=== PATIENT | male | born 2005 | race Caucasian/White ===

== ENCOUNTER 2023-02-26 15:06 | Outpatient (REF) | payer OTHER, SELFPAY | END 2023-02-26 15:07 | disposition home or self-care (01) | LOC: HO.HMGCLDS 15:06 | PROVIDERS: Visit Provider Physician Assistant | DX: R50.9 Fever, unspecified (principal); Z20.828 Contact with and (suspected) exposure to other viral communicable diseases | CPT/HCPCS: 87811; C9803 ==

== ENCOUNTER 2023-02-26 16:20 | Emergency (ER) | payer OTHER, SELFPAY ==
[2023-02-26 16:36] VITALS: PULSE 139; TEMP 38.4; BMI 34.0
--- NOTE | 2023-02-26 16:36 | ED.GENADULT ---
HPI - General Adult General Chief complaint: General Medical Stated complaint: Sent by Time Seen by Provider: 02/26/23 17:38 Related Data Previous Rx's Medication Instructions Recorded doxycycline hyclate 100 mg tablet 100 mg PO BID #20 tabs 02/26/23 ibuprofen 600 mg tablet 600 mg PO Q6H PRN fever or pain 02/26/23 #20 tabs Allergies Allergy/AdvReac Type Severity Reaction Status Date / Time No Known Allergies Allergy Verified 02/26/23 16:36 [facility] Social History Social History Patient Tobacco Use Status: Never used Tobacco Advance Directives: No Advance Directives Information Provided: No Physical Exam ED Vital Signs: Vital Signs - 24 hr 02/26/23 16:36 02/26/23 17:25 02/26/23 17:42 Temperature 101.1 F H 99.8 F 99.8 F Pulse Rate 139 H Respiratory Rate Blood Pressure Pulse Oximetry Oxygen Delivery Method Room Air 02/26/23 19:24 02/26/23 20:34 Temperature 99.7 F 98.4 F Pulse Rate 108 H 102 H Respiratory Rate 18 16 Blood Pressure 124/71 117/69 Pulse Oximetry 99 97 Oxygen Delivery Method Room Air Room Air BMI result Body Mass Index 34.0 Course Course Course Narrative: This is an RME: Additional HPI, ROS, PE not included below will be deferred to primary provider. This is a [id number] presenting to the emergency department with complaints of headache and neck pain x 1 week. Reports that two weeks ago, he had a mild headache , gradually headache pain getting worse. Took ibuprofen which helped his symptoms. Negative covid, strep test. Left arm with oval shaped rash. Patient reports that 2 months ago he was out in the [facility] for 2 weeks, no known tick bite. No sore throat. Patient is febrile, tachy. Full ROM of neck. Was seen at urgent care and was told to report here for further eval - given ibuprofen while at the urgent care. Charge nurse notified to take patient back bonny Plan: Labs ordered. Tylenol 1g PO ordered. Medications Administered Discontinued Medications Generic Name Dose Route Start Last Admin Trade Name Freq PRN Reason Stop Dose Admin Acetaminophen 975 mg 02/26/23 16:48 02/26/23 16:53 Acetaminophen 325 Mg Tablet PO 02/26/23 16:49 975 mg ONCE ONE Administration Diphenhydramine HCl 25 mg 02/26/23 17:44 02/26/23 18:00 Diphenhydramine Hcl 50 Mg/Ml Vial IVPUSH 02/26/23 17:45 25 mg ONCE ONE Administration Sodium Chloride 2,865 mls @ 2,865 mls/hr 02/26/23 17:23 02/26/23 17:40 Ns 30 ml/kg infuse over 1 hr (2865 ml) 02/26/23 18:22 2,865 mls/hr IV Administration .Q1H STA Ketorolac Tromethamine 30 mg 02/26/23 17:44 02/26/23 18:01 Ketorolac Tromethamine 30 Mg/Ml Vial IVPUSH 02/26/23 17:45 30 mg ONCE ONE Administration Metoclopramide HCl 10 mg 02/26/23 17:44 02/26/23 18:01 Metoclopramide Hcl 10 Mg/2 Ml Vial IVPUSH 02/26/23 17:45 10 mg ONCE ONE Administration Medical Decision Making Medical Decision Making [facility] Narrative: -patient came in febrile, tachycardic, with known exposure to ticks. Admission is comes -patient received IV fluids, ketorolac, patient feeling much better. -patient no longer having a fever, feels good -I discussed the rash on the patient with Dr. Mendoza, we will treat with doxycycline for 10 days 100 mg b.i.d., 1st dose given in the ED Differential Diagnosis Differential Diagnoses: The differential diagnosis associated with the presentation includes (Lyme disease, babesia, ehrichia, viral syndrome, flu, COVID) Admission/Observation Consideration of admission/observation: Escalation of care including admission/observation considered Consult Healthcare Provider Management of the patient was discussed with: Jitterbug Operator (Infectious disease) Lab Data [facility] Lab Attestation statement: I reviewed the patient's lab results. 02/26/23 17:09 02/26/23 17:09 Labs: Lab Results 02/26/23 02/26/23 02/26/23 Range/Units 17:09 17:09 17:09 WBC 8.3 (4.8-10.8) X10*3/uL RBC 5.13 (4.60-5.80) X10*6/uL Hgb 15.4 (14.0-18.0) g/dl Hct 42.9 (42.0-52.0) % MCV 83.6 (80.0-98.0) fL MCH 30.0 (27.0-33.0) pg MCHC 35.9 (31.0-36.0) g/dl RDW 12.1 (11.0-16.0) % Plt Count 191 (160-400) X10*3/uL MPV 9.7 (9.4-12.4) fL Immature Gran % (Auto) 0.2 (0.0-0.4) % Neut % (Auto) 77.6 H (45-73) % Lymph % (Auto) 14.1 L (20-40) % Wirt % (Auto) 7.4 (2-11) % Eos % (Auto) 0.5 (0-4) % Baso % (Auto) 0.2 (0-2) % Lymph # (Auto) 1.2 (1.2-4.9) X10*3/uL Wirt # (Auto) 0.6 (0.1-1.2) X10*3/uL Eos # (Auto) 0.0 (0.0-0.4) X10*3/uL Baso # (Auto) 0.0 (0.0-0.2) X10*3/uL Abs Immat Gran (auto) 0.02 (0.00-0.03) X10*3/uL Absolute Neuts (auto) 6.4 (2.0-8.3) x10*3/uL Absolute Nucleated RBC 0.000 (0.0-0.012) X10*3/uL Nucleated RBC % (auto) 0.0 (0.0-0.2) /100WBC Sodium 138 (135-145) mmol/L Potassium 3.5 (3.3-5.1) mmol/L Chloride 104 (96-108) mmol/L Carbon Dioxide 23 (22-29) mmol/L Anion Gap 15 (12-20) BUN 11 (9-16) mg/dL Creatinine 0.86 (0.5-1.4) mg/dL Estim Creat Clear Calc 149.4 Estimated GFR > 60 Random Glucose 148 H (60-115) mg/dL Lactic Acid (0.5-2.0) mmol/L Calcium 9.6 (8.4-10.2) mg/dL Total Bilirubin 1.7 H (0.0-1.0) mg/dL Direct Bilirubin 0.6 H (0.0-0.5) mg/dL AST 63 H (5-37) U/L ALT 94 H (0-40) U/L Alkaline Phosphatase 97 (39-117) U/L Total Protein 7.6 (6.5-8.0) g/dL Albumin 4.3 (3.5-5.0) g/dL Urine Color Urine Appearance Urine pH (5.0-9.0) Ur Specific [place] (1.005-1.025) Urine Protein (Neg-Trace) mg/dL Urine Glucose (UA) (Negative) mg/dL Urine Ketones (Negative) mg/dL Urine Blood (Negative) Urine Nitrite (Negative) Ur Leukocyte Esterase (Negative) COVID-19 (ABAD) (Negative) COVID-19 Clin Com Monoscreen Negative (Negative) S. pyogenes GrpA FRANKY (Negative) 02/26/23 02/26/23 02/26/23 Range/Units 17:09 17:09 17:09 WBC (4.8-10.8) X10*3/uL RBC (4.60-5.80) X10*6/uL Hgb (14.0-18.0) g/dl Hct (42.0-52.0) % MCV (80.0-98.0) fL MCH (27.0-33.0) pg MCHC (31.0-36.0) g/dl RDW (11.0-16.0) % Plt Count (160-400) X10*3/uL MPV (9.4-12.4) fL Immature Gran % (Auto) (0.0-0.4) % Neut % (Auto) (45-73) % Lymph % (Auto) (20-40) % Wirt % (Auto) (2-11) % Eos % (Auto) (0-4) % Baso % (Auto) (0-2) % Lymph # (Auto) (1.2-4.9) X10*3/uL Wirt # (Auto) (0.1-1.2) X10*3/uL Eos # (Auto) (0.0-0.4) X10*3/uL Baso # (Auto) (0.0-0.2) X10*3/uL Abs Immat Gran (auto) (0.00-0.03) X10*3/uL Absolute Neuts (auto) (2.0-8.3) x10*3/uL Absolute Nucleated RBC (0.0-0.012) X10*3/uL Nucleated RBC % (auto) (0.0-0.2) /100WBC Sodium (135-145) mmol/L Potassium (3.3-5.1) mmol/L Chloride (96-108) mmol/L Carbon Dioxide (22-29) mmol/L Anion Gap (12-20) BUN (9-16) mg/dL Creatinine (0.5-1.4) mg/dL Estim Creat Clear Calc Estimated GFR Random Glucose (60-115) mg/dL Lactic Acid 1.1 (0.5-2.0) mmol/L Calcium (8.4-10.2) mg/dL Total Bilirubin (0.0-1.0) mg/dL Direct Bilirubin (0.0-0.5) mg/dL AST (5-37) U/L ALT (0-40) U/L Alkaline Phosphatase (39-117) U/L Total Protein (6.5-8.0) g/dL Albumin (3.5-5.0) g/dL Urine Color Urine Appearance Urine pH (5.0-9.0) Ur Specific [place] (1.005-1.025) Urine Protein (Neg-Trace) mg/dL Urine Glucose (UA) (Negative) mg/dL Urine Ketones (Negative) mg/dL Urine Blood (Negative) Urine Nitrite (Negative) Ur Leukocyte Esterase (Negative) COVID-19 (ABAD) Negative (Negative) COVID-19 Clin Com See Note Monoscreen (Negative) S. pyogenes GrpA FRANKY Negative (Negative) 02/26/23 Range/Units 18:57 WBC (4.8-10.8) X10*3/uL RBC (4.60-5.80) X10*6/uL Hgb (14.0-18.0) g/dl Hct (42.0-52.0) % MCV (80.0-98.0) fL MCH (27.0-33.0) pg MCHC (31.0-36.0) g/dl RDW (11.0-16.0) % Plt Count (160-400) X10*3/uL MPV (9.4-12.4) fL Immature Gran % (Auto) (0.0-0.4) % Neut % (Auto) (45-73) % Lymph % (Auto) (20-40) % Wirt % (Auto) (2-11) % Eos % (Auto) (0-4) % Baso % (Auto) (0-2) % Lymph # (Auto) (1.2-4.9) X10*3/uL Wirt # (Auto) (0.1-1.2) X10*3/uL Eos # (Auto) (0.0-0.4) X10*3/uL Baso # (Auto) (0.0-0.2) X10*3/uL Abs Immat Gran (auto) (0.00-0.03) X10*3/uL Absolute Neuts (auto) (2.0-8.3) x10*3/uL Absolute Nucleated RBC (0.0-0.012) X10*3/uL Nucleated RBC % (auto) (0.0-0.2) /100WBC Sodium (135-145) mmol/L Potassium (3.3-5.1) mmol/L Chloride (96-108) mmol/L Carbon Dioxide (22-29) mmol/L Anion Gap (12-20) BUN (9-16) mg/dL Creatinine (0.5-1.4) mg/dL Estim Creat Clear Calc Estimated GFR Random Glucose (60-115) mg/dL Lactic Acid (0.5-2.0) mmol/L Calcium (8.4-10.2) mg/dL Total Bilirubin (0.0-1.0) mg/dL Direct Bilirubin (0.0-0.5) mg/dL AST (5-37) U/L ALT (0-40) U/L Alkaline Phosphatase (39-117) U/L Total Protein (6.5-8.0) g/dL Albumin (3.5-5.0) g/dL Urine Color Yellow Urine Appearance Clear Urine pH 6.0 (5.0-9.0) Ur Specific [place] <= 1.005 (1.005-1.025) Urine Protein Negative (Neg-Trace) mg/dL Urine Glucose (UA) Negative (Negative) mg/dL Urine Ketones Negative (Negative) mg/dL Urine Blood Negative (Negative) Urine Nitrite Negative (Negative) Ur Leukocyte Esterase Negative (Negative) COVID-19 (ABAD) (Negative) COVID-19 Clin Com Monoscreen (Negative) S. pyogenes GrpA FRANKY (Negative) Critical Care Time Critical Care Time Critical Care Time: Yes Total Critical Care Time: 30 Attestation: I have personally provided critical care time. Time includes review of lab data, radiology results, discussion with consultants, and monitoring for potential decompensation. Intervention performed as documented. Discharge Plan Discharge Clinical Impression: Tick bite Patient Disposition: Home, Self-Care Instructions: Lyme Disease (ED), Tick Bite (ED) Additional Instructions: Please follow-up with your primary care physician tomorrow. If you have any worsening or new symptoms, please return to the emergency room or call 911 Prescriptions: New doxycycline hyclate 100 mg tablet 100 mg PO BID Qty: 20 0RF ibuprofen 600 mg tablet 600 mg PO Q6H PRN (Reason: fever or pain) Qty: 20 0RF Referrals: Vicky Mendoza MD [Physician] - 03/05/23
--- NOTE | 2023-02-26 16:54 | PC.NURSE ---
pt medicated per OCT for fever.
[2023-02-26 17:25] VITALS: TEMP 37.7
[2023-02-26 17:42] VITALS: TEMP 37.7
[2023-02-26 19:24] VITALS: BP 124/71; PULSE 108; RESP 18; TEMP 37.6; O2SAT 99
[2023-02-26 20:34] VITALS: BP 117/69; PULSE 102; RESP 16; TEMP 36.9; O2SAT 97
[2023-03-02 22:53] LABS: Lyme Abs Screen <0.90 index
[2023-03-06 14:39] LABS: A. Phagocytophilum Ab IgG <1:64 (<1:64); A. Phagocytophilum Ab IgM <1:20 (<1:20); E. Chaffeensis Ab IgG <1:64 (<1:64); E. Chaffeensis Ab IgM <1:20 (<1:20)
[2023-03-07 08:33] LABS: Babesia IgG <1:64 titer (<1:64); Babesia IgM <1:20 titer (<1:20)
== END 2023-02-26 21:11 | disposition home or self-care (01) ==
PROVIDERS: Physician Assistant Medical; Emergency Provider Emergency Medicine
DX: S40.862A Insect bite (nonvenomous) of left upper arm, initial encounter (principal); W57.XXXA Bitten or stung by nonvenomous insect and other nonvenomous arthropods, initial encounter; R00.0 Tachycardia, unspecified; Z20.822 Contact with and (suspected) exposure to COVID-19; Y93.89 Activity, other specified; Y92.828 Other wilderness area as the place of occurrence of the external cause; Y99.9 Unspecified external cause status
CPT/HCPCS: 36415; 80048; 80076; 81003; 83605; 85025; 86308; 86617; 86618; 86666; 86753; 87040; 87635; 87651; 93005; 96361; 96374; 96375; 99284; J1200; J1885; J2765

== ENCOUNTER 2023-02-27 19:43 | Inpatient (IN) | payer OTHER, SELFPAY ==
--- NOTE | 2023-02-27 20:07 | ED.GENADULT ---
HPI - General Adult General Chief complaint: Chest Pain Stated complaint: ?Reaction to antibiotics given 02/26 Time Seen by Provider: 02/27/23 21:00 Source: patient and family Mode of arrival: ambulatory Limitations: no limitations History of Present Illness HPI narrative: patient comes to the emergency room complaining of chest pressure. patient states that this started last night couple of hours after taking the 1st dose of doxycycline. Of note, I saw the patient yesterday, diagnosed with possible Lyme disease. Patient presented with a known history of exposure to ticks approximately 2 months ago, a suspicious rash in the left upper arm, fever, chills. Patient tested negative for COVID, influenza. I discussed the patient with Dr. Mendoza, we both agreed that this could be a more recent exposure to ticks, patient was started on doxycycline and sent home. Today, the patient presented with chest pressure that started since last night. Patient states that he feels better overall, the rash in his arm is getting better, he Has not been spiking fever all day. Patient states that the chest pressure is constant, nonradiating, unrelated to position, no shortness of breath. Related Data Previous Rx's Medication Instructions Recorded doxycycline hyclate 100 mg tablet 100 mg PO BID #20 tabs 02/26/23 ibuprofen 600 mg tablet 600 mg PO Q6H PRN fever or pain 02/26/23 #20 tabs Allergies Allergy/AdvReac Type Severity Reaction Status Date / Time No Known Allergies Allergy Verified 02/26/23 16:36 Review of Systems Review of Systems: Constitutional : No Weight loss, No Fever, No Chills, No Night Sweats, No Fatigue, No Malaise ENT/Mouth : No Hearing loss, No Ear Pain, No Nasal Congestion, No Sinus Pain, No Hoarseness, No sore throat, No Rhinorrhea, No Swallowing Difficulty Eyes: No Eye Pain, No Swelling, No Redness, No Foreign Body, No Discharge, No Vision Changes Cardiovascular : Complaining of bilateral chest discomfort, No SOB, No Dyspnea on Exertion, No Orthopnea, No Edema, No Palpitations Respiratory : No Cough, No Sputum, No Wheezing, No Smoke Exposure, No Dyspnea Gastrointestinal : No Nausea, No Vomiting, No Diarrhea, No Constipation, No abdominal Pain, No Hematochezia, No Melena Genitourinary : no irregular bleeding, No Dysuria, No Urinary Frequency, No Hematuria, No Urinary Incontinence, No Urgency, No Flank Pain, No Urinary Flow Changes, No Hesitancy Musculoskeletal : No joint pain, No Myalgias, No Joint Swelling Skin : No Skin Lesions, No rash Neuro : No Weakness, No Numbness, No Paresthesias, No Loss of Consciousness, No Dizziness, No Headache Psych : No Anxiety/Panic, No Depression, No SI/HI/AH/VH, No Social Issues, Heme/Lymph: No Bruising, No Bleeding,No Lymphadenopathy Endocrine : No Polyuria, No Polydipsia, No Temperature Intolerance [facility] Social History Social History Alcohol intake: never Patient Tobacco Use Status: Never used Tobacco Smoked in Last 30 Days: No Use of substances other than those prescribed or required for medical reasons: No Advance Directives: No Advance Directives Information Provided: No Physical Exam ED Vital Signs: Vital Signs - 24 hr 02/27/23 20:10 Temperature 98 F Pulse Rate 102 H Respiratory Rate 16 Blood Pressure 143/86 H Pulse Oximetry 98 Oxygen Delivery Method Room Air BMI result Body Mass Index 30.7 Const Other: Appearance: Alert. Oriented X3. No acute distress. Eyes: Pupils equal, round and reactive to light. ENT: Pharynx normal. Neck: Normal inspection. Neck supple. No lymph nodes noted. No crepitus CVS: tachycardic between 110-120, regular rhythm. Pulses normal. Normal S1 and S2 Respiratory: No respiratory distress. Breath sounds normal. No Wheezing. No rales Abdomen: Soft and nontender. No rigidity. No distention. Skin: Skin warm and dry. Normal skin color. Normal skin turgor. Extremities: No lower extremity edema. No Lacerations. No Rash Neuro: Oriented X 3. No motor deficit. No sensory deficit. Moving all extremities. No slurred speech. CN 2 through 12 grossly intact Psych: calm, cooperative, anxious, teary Course Course Course Narrative: This is an RME: Additional HPI, ROS, PE not included below will be deferred to primary provider. Patient is a 17 year old male status post initiation of antibiotics last night reporting swelling of the left eye since this morning with sternal burning chest pain and shortness of breath, subjective fevers. Patient denies nausea, vomiting, chills, numbness, tingling, headache, changes in vision. Plan: labs, imaging, benadryl Medications Administered Discontinued Medications Generic Name Dose Route Start Last Admin Trade Name Frederick PRN Reason Stop Dose Admin Diphenhydramine HCl 50 mg 02/27/23 20:07 02/27/23 21:58 Diphenhydramine Hcl 50 Mg/Ml Vial IVPUSH 02/27/23 20:08 50 mg ONCE ONE Administration Medical Decision Making Medical Decision Making [facility] Narrative: - EKG my recommendation: Sinus rhythm, heart rate 103, no ST segment depression or elevation, nonspecific T-wave inversions in lead 3, QTC 434 - my interpretation of chest x-ray: No infiltrates, no fractures or pneumothorax - patient's initial troponin is 2015. no EKG abnormalities other than sinus tachycardia. - I discussed the patient with Dr. Joseph. 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 Recommendations: NSAIDs and admit. - We will continue patient's doxycycline. Patient will likely need an ID consult in the morning. 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 Ford, pt being admitted - patient has been anxious, given p.o. Ativan 1 mg Differential Diagnosis Differential Diagnoses: The differential diagnosis associated with the presentation includes ( Lyme myocarditis, NSTEMI) Admission/Observation Consideration of admission/observation: Escalation of care including admission/observation considered Consult Healthcare Provider Management of the patient was discussed with: Hospitalist and [employer]ave [employer] Operator Lab Data [facility] Lab Attestation statement: I reviewed the patient's lab results. 02/27/23 20:22 02/27/23 20:22 Labs: Lab Results 02/27/23 02/27/23 02/27/23 Range/Units 20:22 20:22 20:22 WBC 8.5 (4.8-10.8) X10*3/uL RBC 4.40 L (4.60-5.80) X10*6/uL Hgb 13.4 L (14.0-18.0) g/dl Hct 37.8 L (42.0-52.0) % MCV 85.9 (80.0-98.0) fL MCH 30.5 (27.0-33.0) pg MCHC 35.4 (31.0-36.0) g/dl RDW 12.5 (11.0-16.0) % Plt Count 196 (160-400) X10*3/uL MPV 9.5 (9.4-12.4) fL Immature Gran % (Auto) 0.4 (0.0-0.4) % Neut % (Auto) 51.9 (45-73) % Lymph % (Auto) 31.3 (20-40) % [place] % (Auto) 14.0 H (2-11) % Eos % (Auto) 2.0 (0-4) % Baso % (Auto) 0.4 (0-2) % Lymph # (Auto) 2.7 (1.2-4.9) X10*3/uL [place] # (Auto) 1.2 (0.1-1.2) X10*3/uL Eos # (Auto) 0.2 (0.0-0.4) X10*3/uL Baso # (Auto) 0.0 (0.0-0.2) X10*3/uL Abs Immat Gran (auto) 0.03 (0.00-0.03) X10*3/uL Absolute Neuts (auto) 4.4 (2.0-8.3) x10*3/uL Absolute Nucleated RBC 0.000 (0.0-0.012) X10*3/uL Nucleated RBC % (auto) 0.0 (0.0-0.2) /100WBC Sodium 144 (135-145) mmol/L Potassium 3.8 (3.3-5.1) mmol/L Chloride 108 (96-108) mmol/L Carbon Dioxide 28 (22-29) mmol/L Anion Gap 12 (12-20) BUN 11 (9-16) mg/dL Creatinine 0.75 (0.5-1.4) mg/dL Estim Creat Clear Calc 163.0 Estimated GFR > 60 Random Glucose 100 (60-115) mg/dL Calcium 9.2 (8.4-10.2) mg/dL Magnesium 1.9 (1.6-2.6) mg/dL Total Bilirubin 1.0 (0.0-1.0) mg/dL AST 105 H (5-37) U/L ALT 153 H (0-40) U/L Alkaline Phosphatase 98 (39-117) U/L Troponin I High Sens 2014.9 H* (<3.5-35.0) ng/L Total Protein 7.0 (6.5-8.0) g/dL Albumin 4.0 (3.5-5.0) g/dL Radiology Impression Discussion of test interpretation with radiology: I have reviewed the radiologist's reading. Radiologist Impression: FINDINGS: No significant abnormality is noted involving the heart, lungs, mediastinum, bony thorax or soft tissues. XR/XR chest 1V IMPRESSION: Unremarkable examination. Independent Historian Clinical information obtained from an independent historian. History obtained from or confirmed by: Parent ( mother and father) Critical Care Time Critical Care Time Critical Care Time: Yes Total Critical Care Time: 75 Attestation: I have personally provided critical care time. Time includes review of lab data, radiology results, discussion with consultants, and monitoring for potential decompensation. Intervention performed as documented. Discharge Plan Discharge Clinical Impression: Myocarditis, Elevated LFTs Patient Disposition: Admitted As Inpatient Prescriptions: No Action doxycycline hyclate 100 mg tablet 100 mg PO BID Qty: 20 0RF ibuprofen 600 mg tablet 600 mg PO Q6H PRN (Reason: fever or pain) Qty: 20 0RF
[2023-02-27 20:10] VITALS: BP 143/86; PULSE 102; RESP 16; TEMP 36.6; O2SAT 98; BMI 30.7
[2023-02-27 22:03] VITALS: BP 151/90; PULSE 118; RESP 16; TEMP 37.3; O2SAT 99
--- NOTE | 2023-02-27 22:16 | PM.IMHP ---
History of Present Illness Date of Service: 02/27/23 Chief Complaint: chest pain This is a 17-year-old male with no pertinent past medical history and not on prescription medications presents to the emergency department for evaluation of chest discomfort. Patient states [place]. He presented to the ER yesterday with left arm rash which he noticed on the day on 02/26/2023. Patient was initiated on doxycycline after consulting with ID and discharged by the ER provider. Patient presents today again with midsternal chest discomfort, nonradiating, constant. He states that it increases with deep inspiration. And no history of similar complaints in the past. No fevers, chills, nausea, vomiting, palpitations, shortness of breath, abdominal pain, changes in urinary or bowel habits. In the emergency department, troponin was found to be elevated. Cardiology was consulted who requested admission Review of Systems Constitutional: Constitutional: Reports no additional constitutional complaints ENT: Reports system reviewed and no additional complaints, except as documented Cardiovascular: Cardiovascular: Reports chest pain Respiratory: Respiratory: Reports no additional respiratory complaints Gastrointestinal: Gastrointestinal: Reports no additional gastrointestinal complaints Musculoskeletal: Musculoskeletal: Reports no additional musculoskeletal complaints PMFSH Pertinent family history: No family history of early CAD Social History Alcohol intake: never Patient Tobacco Use Status: Never used Tobacco Smoked in Last 30 Days: No Use of substances other than those prescribed or required for medical reasons: No Advance Directives: No Advance Directives Information Provided: No Nutrition Risks: No Nutritional Risk Meds Allergies Allergy/AdvReac Type Severity Reaction Status Date / Time No Known Allergies Allergy Verified 02/26/23 16:36 Active Medications: Current Medications Acetaminophen (Acetaminophen 325 Mg Tablet) 650 mg PO Q6H PRN PRN Reason: Pain, Mild (Pain Scale 1-3) Enoxaparin Sodium (Enoxaparin Sodium 40 Mg/0.4 Ml Syringe) 40 mg SUBCUT Q24H TISH Doxycycline Hyclate 100 mg/ (Sodium Chloride) 250 mls @ 166.67 mls/hr IV ONCE ONE Stop: 02/27/23 23:31 Ibuprofen (Ibuprofen 600 Mg Tablet) 600 mg PO Q6H TISH Melatonin (Melatonin 3 Mg Tablet) 6 mg PO BEDTIME PRN PRN Reason: Insomnia Ondansetron HCl (Ondansetron Hcl 4 Mg/2 Ml Vial) 4 mg IVPUSH Q8H PRN PRN Reason: Nausea and Vomiting Pharmacy Consult (Consult Rx Perform Med Rec) 1 each MISCELLANE ONCE PRN PRN Reason: Consult order Sodium Chloride (0.9 % Sodium Chloride Flush 3 Ml Syringe) 3 ml IVFLUSH QSHIFT TISH Physical Exam Vital Signs and Narrative: Vital Signs: Last Vital Signs Temp 99.2 F 02/27/23 22:03 Pulse 118 H 02/27/23 22:03 Resp 16 02/27/23 22:03 BP 151/90 H 02/27/23 22:03 Pulse Ox 99 02/27/23 22:03 O2 Del Method Room Air 02/27/23 22:03 BMI result Body Mass Index 30.7 Young male lying in bed in no distress Neck supple, no JVD Tachycardic with regular rhythm, S1-S2 heard Regular breath sounds bilaterally, no wheezing or crackles appreciated Abdomen soft nontender, no guarding, no rigidity Patient is awake, alert and oriented to self, place, time and person ; no focal motor deficit Musculoskeletal: Left arm rash seen Psych: Normal mood No pedal edema Results Labs 02/27/23 20:22 02/27/23 20:22 Labs: Laboratory Results - last 24 hr 02/27/23 02/27/23 02/27/23 20:22 20:22 20:22 MCV 85.9 MCH 30.5 MCHC 35.4 RDW 12.5 Plt Count 196 MPV 9.5 Immature Gran % (Auto) 0.4 Neut % (Auto) 51.9 Lymph % (Auto) 31.3 [place] % (Auto) 14.0 H Eos % (Auto) 2.0 Baso % (Auto) 0.4 Lymph # (Auto) 2.7 [place] # (Auto) 1.2 Eos # (Auto) 0.2 Baso # (Auto) 0.0 Abs Immat Gran (auto) 0.03 Absolute Neuts (auto) 4.4 Absolute Nucleated RBC 0.000 Nucleated RBC % (auto) 0.0 Anion Gap 12 Estim Creat Clear Calc 163.0 Estimated GFR > 60 Random Glucose 100 Calcium 9.2 Magnesium 1.9 Total Bilirubin 1.0 AST 105 H ALT 153 H Alkaline Phosphatase 98 Troponin I High Sens 2014.9 H* Total Protein 7.0 Albumin 4.0 Imaging Radiologist's Impressions: Impressions Chest X-Ray 02/27/23 20:34 IMPRESSION: Unremarkable examination. Assessment and Plan (1) Chest pain: Status: Acute Plan This is a 17-year-old male with no pertinent past medical history and not on prescription medications presents to the emergency department for evaluation of chest discomfort. #. Elevated troponin, concerning for pericarditis. Will admit patient with clinical dietician. Initiating NSAIDs. Cardiology was consulted from the ER, appreciate assistance. Obtaining echo. Trend troponin #. Rash likely due to tick bite. Continue doxycycline. Lyme titers pending DVT prophylaxis: Lovenox Full code Time Spent With Patient Time: Total time managing care of this patient today ____ minutes. Quality Stroke Does the patient have a stroke diagnosis?: No VTE Prior VTE?: No VTE Risk Level:: Medical - moderate - high VTE Device Contraindication: Treatment Not Indicated VTE Drug Contraindication: N/A - Med Ordered
--- NOTE | 2023-02-27 22:17 | PHA.MEDREC ---
Pharmacy Consult ? Medication Reconciliation Pharmacy has completed the medication reconciliation. Pt discharged 02/26
--- NOTE | 2023-02-27 23:17 | PC.NURSE ---
Addendum entered by Calista Arambula 02/27/23 23:23: Report given to Mariely, Pt will be transported to room 478, Pt and parents aware of plan. Original Note: Pt A&Ox4, reports intermittent burning pain to middle of chest, non-radiating, states it worsens with deep breathing and exertion, rates pain 2/10. Pt denies N/V/D, denies ABD pain. Pt placed on bedside monitor, IV line established, meds given as documented. Pt ambulated to BR independently with steady gait, parents at bedside.
[2023-02-27 23:56] VITALS: BMI 35.4
[2023-02-28] VITALS (7 sets, daily range): BP systolic 132–166; BP diastolic 63–76; PULSE 85–106; RESP 18–20; TEMP 36.1–36.7; O2SAT 98–99
--- NOTE | 2023-02-28 10:03 | HO.PM.IMPN ---
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 Rash on L arm and R chest Review of Systems Review of Systems: Yes all other systems are reviewed and are negative Physical Exam Vital Signs: Vital Signs: Last Vital Signs Temp 97.1 F 02/28/23 07:41 Pulse 85 02/28/23 07:41 Resp 19 02/28/23 07:41 BP 132/70 02/28/23 07:41 Pulse Ox 99 02/28/23 07:41 O2 Del Method Room Air 02/28/23 07:41 BMI result Body Mass Index 35.4 Gen: in no acute distress HEENT: sclera anicteric, moist mucus membranes, full ROM, no nuchal rigidity Neck: supple Lungs: clear to auscultation bilaterally Heart: regular rate and rhythm, no murmurs Abd: soft, non-tender, non-distended Ext: no edema Skin: warm/well-perfused, 2 areas of erythema on R upper arm and L chest Neuro: alert and oriented x3, no focal findings Psych: appropriate affect Objective Data Active Medications Acetaminophen (Acetaminophen 325 Mg Tablet) 650 mg PO Q6H PRN PRN Reason: Pain, Mild (Pain Scale 1-3) Last Admin: 02/28/23 00:21 Dose: 650 mg Documented By: CD Enoxaparin Sodium (Enoxaparin Sodium 40 Mg/0.4 Ml Syringe) 40 mg SUBCUT Q24H [facility] Last Admin: 02/27/23 22:30 Dose: 40 mg Documented By: ALEXX Ceftriaxone Sodium 2 gm/ (Sodium Chloride) 50 mls @ 100 mls/hr IV Q24H [facility] Last Admin: 02/28/23 09:43 Dose: 100 mls/hr Documented By: MATT Ibuprofen (Ibuprofen 600 Mg Tablet) 600 mg PO Q6H [facility] Last Admin: 02/28/23 09:42 Dose: 600 mg Documented By: MATT Melatonin (Melatonin 3 Mg Tablet) 6 mg PO BEDTIME PRN PRN Reason: Insomnia Last Admin: 02/28/23 00:21 Dose: 6 mg Documented By: DC Ondansetron HCl (Ondansetron Hcl 4 Mg/2 Ml Vial) 4 mg IVPUSH Q8H PRN PRN Reason: Nausea and Vomiting Pharmacy Consult (Consult Rx Perform Med Rec) 1 each MISCELLANE ONCE PRN PRN Reason: Consult order Sodium Chloride (0.9 % Sodium Chloride Flush 3 Ml Syringe) [address] [facility] Last Admin: 02/28/23 09:44 Dose: 3 ml Documented By: MATT Labs 02/28/23 06:14 02/28/23 06:14 Labs: Laboratory Results - last 24 hr 02/27/23 02/27/23 02/27/23 20:22 20:22 20:22 MCV 85.9 MCH 30.5 MCHC 35.4 RDW 12.5 Plt Count 196 MPV 9.5 Immature Gran % (Auto) 0.4 Neut % (Auto) 51.9 Lymph % (Auto) 31.3 [place] % (Auto) 14.0 H Eos % (Auto) 2.0 Baso % (Auto) 0.4 Lymph # (Auto) 2.7 [place] # (Auto) 1.2 Eos # (Auto) 0.2 Baso # (Auto) 0.0 Abs Immat Gran (auto) 0.03 Absolute Neuts (auto) 4.4 Absolute Nucleated RBC 0.000 Nucleated RBC % (auto) 0.0 Anion Gap 12 Estim Creat Clear Calc 163.0 Estimated GFR > 60 Random Glucose 100 Calcium 9.2 Magnesium 1.9 Total Bilirubin 1.0 AST 105 H ALT 153 H Alkaline Phosphatase 98 Troponin I High Sens 2014.9 H* Total Protein 7.0 Albumin 4.0 02/27/23 02/28/23 02/28/23 23:07 06:14 06:14 MCV 86.4 MCH 29.8 MCHC 34.5 RDW 12.6 Plt Count 183 MPV 9.7 Immature Gran % (Auto) 0.4 Neut % (Auto) 39.6 L Lymph % (Auto) 44.4 H [place] % (Auto) 12.6 H Eos % (Auto) 2.7 Baso % (Auto) 0.3 Lymph # (Auto) 3.3 [place] # (Auto) 0.9 Eos # (Auto) 0.2 Baso # (Auto) 0.0 Abs Immat Gran (auto) 0.03 Absolute Neuts (auto) 3.0 Absolute Nucleated RBC 0.000 Nucleated RBC % (auto) 0.0 Anion Gap 13 Estim Creat Clear Calc 172.5 Estimated GFR > 60 Random Glucose 91 Calcium 9.3 Magnesium Total Bilirubin AST ALT Alkaline Phosphatase Troponin I High Sens 2217.2 H* Total Protein Albumin 02/28/23 06:14 MCV MCH MCHC RDW Plt Count MPV Immature Gran % (Auto) Neut % (Auto) Lymph % (Auto) [place] % (Auto) Eos % (Auto) Baso % (Auto) Lymph # (Auto) [place] # (Auto) Eos # (Auto) Baso # (Auto) Abs Immat Gran (auto) Absolute Neuts (auto) Absolute Nucleated RBC Nucleated RBC % (auto) Anion Gap Estim Creat Clear Calc Estimated GFR Random Glucose Calcium Magnesium Total Bilirubin AST ALT Alkaline Phosphatase Troponin I High Sens 1249.6 H* Total Protein Albumin Assessment and Plan (1) Myocarditis: Status: Acute Plan d#2 17yo M with no chronic conditions, diagnosed with presumptive Lyme on 02/26/23 and started doxycycline but then developed chest pain/discomfort and found to have elevated troponin # multiple EM, likely early disseminated Lyme # myocarditis, likely Lyme - Cardiology consultation - switch doxy to ceftriaxone - ID consultation - tickborne molecular + serological tests pending - keep on telemetry and check EKG for signs of heart block - TTE today - NSAIDs prn pain # VTE ppx: LMWH # dispo: eventually home In my clinical judgment, the patient requires continued inpatient hospitalization for the following reasons: IV ABX Time Spent With Patient Time: Total time managing care of this patient today _45___ minutes. Quality Stroke Does the patient have a stroke diagnosis?: No VTE Prior VTE?: No VTE Risk Level:: Medical - moderate - high VTE Device Contraindication: Treatment Not Indicated VTE Drug Contraindication: N/A - Med Ordered
--- NOTE | 2023-02-28 10:23 | PM.CNCAR ---
History of Present Illness History of Present Illness Date of Service: 02/28/23 Chief complaint: Chest Pain Narrative: This is a cardiology consultation regarding elevated troponins. Patient is fairly healthy and does not have any comorbidities. He apparently was camping and in the [place]raft in [place] in the month of December. Couple weeks ago, started having symptoms like headaches and neck pain. For the last 2 days or so also started having some chest discomfort. More when he takes a breath. No other clear-cut respiratory symptoms. Also had a rash on his skin. He was found to have elevated troponins and subsequently admitted. Today, his parents at the bedside and they state that patient looks much better than initial presentation. Review of Systems Review of Systems: Yes all other systems are reviewed and are negative Constitutional: Constitutional: Reports as per HPI and Reports no additional constitutional complaints Eyes: Eyes: Reports as per HPI and Denies no additional eye complaints ENT: Denies system reviewed and no additional complaints, except as documented and Reports as per HPI Cardiovascular: Cardiovascular: Reports as per HPI, Reports no additional cardiovascular complaints, Denies acrocyanosis, Denies cool extremities, Reports chest pain, Denies leg edema, Denies lightheadedness, Denies palpitations and Denies dyspnea Respiratory: Respiratory: Reports as per HPI, Denies no additional respiratory complaints and Denies dyspnea Gastrointestinal: Gastrointestinal: Reports as per HPI and Denies no additional gastrointestinal complaints Genitourinary: Genitourinary: Reports no additional male genitourinary complaints and Reports as per HPI Musculoskeletal: Musculoskeletal: Reports no additional musculoskeletal complaints and Reports as per HPI Integumentary/Breasts: Skin/Breast: Reports system reviewed and no additional complaints, except as docu Neurologic: Reports system reviewed and no additional complaints, except as documented and Reports as per HPI Psychiatric: Psychiatric: Reports no additional psychiatric complaints and Reports as per HPI Endocrine: Endocrine: Reports no additional endocrine complaints, Reports as per HPI and Denies palpitations Hematologic/Lymphatic: Hematologic/Lymphatic: Reports no additional hematologic/lymphatic complaints and Reports as per HPI Allergic/Immunologic: Allergic/Immunologic: Reports no additional allergic/immunologic complaints and Reports as per HPI [facility] Past Medical History Cognitive capacity: No significant past medical history. Family History Pertinent family history: No significant cardiac issues in family per parents. Social History Social History Alcohol intake: never Patient Tobacco Use Status: Never used Tobacco Smoked in Last 30 Days: No Patient Interested in Nicotine Replacement: No Patient Given Instructions on How to Stop Smoking: No Use of substances other than those prescribed or required for medical reasons: No Advance Directives: No Advance Directives Information Provided: No Nutrition Risks: No Nutritional Risk Meds Allergies Allergy/AdvReac Type Severity Reaction Status Date / Time No Known Allergies Allergy Verified 02/26/23 16:36 Active Medications: Current Medications Acetaminophen (Acetaminophen 325 Mg Tablet) 650 mg PO Q6H PRN PRN Reason: Pain, Mild (Pain Scale 1-3) Last Admin: 02/28/23 00:21 Dose: 650 mg Enoxaparin Sodium (Enoxaparin Sodium 40 Mg/0.4 Ml Syringe) 40 mg SUBCUT Q24H [facility] Last Admin: 02/27/23 22:30 Dose: 40 mg Ceftriaxone Sodium 2 gm/ (Sodium Chloride) 50 mls @ 100 mls/hr IV Q24H [facility] Last Admin: 02/28/23 09:43 Dose: 100 mls/hr Ibuprofen (Ibuprofen 600 Mg Tablet) 600 mg PO Q6H [facility] Last Admin: 02/28/23 09:42 Dose: 600 mg Melatonin (Melatonin 3 Mg Tablet) 6 mg PO BEDTIME PRN PRN Reason: Insomnia Last Admin: 02/28/23 00:21 Dose: 6 mg Ondansetron HCl (Ondansetron Hcl 4 Mg/2 Ml Vial) 4 mg IVPUSH Q8H PRN PRN Reason: Nausea and Vomiting Pharmacy Consult (Consult Rx Perform Med Rec) 1 each MISCELLANE ONCE PRN PRN Reason: Consult order Sodium Chloride (0.9 % Sodium Chloride Flush 3 Ml Syringe) 3 ml IVFLUSH QSHIFT [facility] Last Admin: 02/28/23 09:44 Dose: 3 ml Physical Exam Vital Signs: Vital Signs: Last Vital Signs Temp 97.1 F 02/28/23 07:41 Pulse 85 02/28/23 07:41 Resp 19 02/28/23 07:41 BP 132/70 02/28/23 07:41 Pulse Ox 99 02/28/23 07:41 O2 Del Method Room Air 02/28/23 07:41 BMI result Body Mass Index 35.4 Const: General: comfortable and no acute distress Orientation/consciousness: patient oriented x3 HEENT: Other: Unremarkable Head: Yes normal to inspection Neck: Neck: Yes normal visual inspection Chest: Chest palpation & inspection: normal inspection of the chest Resp: Auscultation: clear to auscultation bilaterally Cardio: Palpation: normal PMI Heart sounds: S1 normal heart sound present, S2 normal heart sound present, no gallops, no murmurs and no rubs GI: Palpation (GI): Soft to palpation Back/Spine/Pelvis: Other: unremarkable Skin: General skin exam: no rashes or lesions noted Neuro: General: patient oriented x3 Extrem: General: Yes normal to inspection Psych: Mental Status: mental status grossly normal Objective Labs and Meds 02/28/23 06:14 02/28/23 06:14 Lab results: Laboratory Results - last 24 hr 02/27/23 02/27/23 02/27/23 20:22 20:22 20:22 WBC 8.5 RBC 4.40 L Hgb 13.4 L Hct 37.8 L MCV 85.9 MCH 30.5 MCHC 35.4 RDW 12.5 Plt Count 196 MPV 9.5 Immature Gran % (Auto) 0.4 Neut % (Auto) 51.9 Lymph % (Auto) 31.3 [place] % (Auto) 14.0 H Eos % (Auto) 2.0 Baso % (Auto) 0.4 Lymph # (Auto) 2.7 [place] # (Auto) 1.2 Eos # (Auto) 0.2 Baso # (Auto) 0.0 Abs Immat Gran (auto) 0.03 Absolute Neuts (auto) 4.4 Absolute Nucleated RBC 0.000 Nucleated RBC % (auto) 0.0 Sodium 144 Potassium 3.8 Chloride 108 Carbon Dioxide 28 Anion Gap 12 BUN 11 Creatinine 0.75 Estim Creat Clear Calc 163.0 Estimated GFR > 60 Random Glucose 100 Calcium 9.2 Magnesium 1.9 Total Bilirubin 1.0 AST 105 H ALT 153 H Alkaline Phosphatase 98 Troponin I High Sens 2014.9 H* Total Protein 7.0 Albumin 4.0 02/27/23 02/28/23 02/28/23 23:07 06:14 06:14 WBC 7.5 RBC 4.19 L Hgb 12.5 L Hct 36.2 L MCV 86.4 MCH 29.8 MCHC 34.5 RDW 12.6 Plt Count 183 MPV 9.7 Immature Gran % (Auto) 0.4 Neut % (Auto) 39.6 L Lymph % (Auto) 44.4 H [place] % (Auto) 12.6 H Eos % (Auto) 2.7 Baso % (Auto) 0.3 Lymph # (Auto) 3.3 [place] # (Auto) 0.9 Eos # (Auto) 0.2 Baso # (Auto) 0.0 Abs Immat Gran (auto) 0.03 Absolute Neuts (auto) 3.0 Absolute Nucleated RBC 0.000 Nucleated RBC % (auto) 0.0 Sodium 145 Potassium 4.8 D Chloride 112 H Carbon Dioxide 25 Anion Gap 13 BUN 10 Creatinine 0.76 Estim Creat Clear Calc 172.5 Estimated GFR > 60 Random Glucose 91 Calcium 9.3 Magnesium Total Bilirubin AST ALT Alkaline Phosphatase Troponin I High Sens 2217.2 H* Total Protein Albumin 02/28/23 06:14 WBC RBC Hgb Hct MCV MCH MCHC RDW Plt Count MPV Immature Gran % (Auto) Neut % (Auto) Lymph % (Auto) [place] % (Auto) Eos % (Auto) Baso % (Auto) Lymph # (Auto) [place] # (Auto) Eos # (Auto) Baso # (Auto) Abs Immat Gran (auto) Absolute Neuts (auto) Absolute Nucleated RBC Nucleated RBC % (auto) Sodium Potassium Chloride Carbon Dioxide Anion Gap BUN Creatinine Estim Creat Clear Calc Estimated GFR Random Glucose Calcium Magnesium Total Bilirubin AST ALT Alkaline Phosphatase Troponin I High Sens 1249.6 H* Total Protein Albumin ECG Interpretation: Underlying rhythm is sinus with an average rate of 103/Min; nonspecific ST-T changes in the inferior leads; normal MO and corrected QT. Imaging Radiologist's impression: Impressions Chest X-Ray 02/27/23 20:34 IMPRESSION: Unremarkable examination. Assessment and Plan (1) Myocarditis: Status: Acute (2) Chest pain: Status: Acute Plan Troponins are 2014, 2217 and 1249 Overall presentation probably myopericarditis. Can use NSAIDs for symptomatic relief. Otherwise, monitor for any arrhythmias on telemetry. Echocardiogram will be performed. Discussed with parents at the bedside. They notice significant improvement since the time of arrival. Time Spent With Patient Time: Total time managing care of this patient today ____ minutes. Procedures Date of Service Date of Service: 02/28/23
--- NOTE | 2023-02-28 11:25 | MHC.CM.PN ---
CM MET WITH PT AND HIS PARENTS AT BEDSIDE PT CURRENTLY LIVING AT HOME, HE WILL [place]URN [place] IN [place] HE IS INDEPENDENT WITH CARE, HAS NO SERVICES AND NO DME PT HAS A NEW PT APPT WITH DR BRIGGS IN [place] SCHEDULED FOR 08/25/22 HE DOES NOT HAVE A HCP AND IS NOT INTERESTED IN COMPLETING ONE AT THIS TIME OBSERVATION NOTICE DELIVERED DCP: HOME NO SERVICES VIA FAMILY TRANSPORT
--- NOTE | 2023-02-28 23:37 | W.PM.IDCN ---
History of Present Illness Data of Consult Service Date: 02/28/23 Requesting physician: Minesh Whyte Primary Care Provider: Unknown Physician HPI Reason for consult: myocarditis,rash He presents with rash as well as 6/10 chest pain. He felt well until two weeks ago. He developed fevers intermittently about 100 degrees over last week. 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 He was supposed to see me as outpatient. Review of Systems Review of Systems: Yes all other systems are reviewed and are negative Constitutional: Constitutional: Reports fever(s) Cardiovascular: Cardiovascular: Reports chest pain Integumentary/Breasts: Skin/Breast: Reports other (rash arms) [facility] Past Medical History Medical History (Updated 02/28/23 @ 23:50 by Vicky Mendoza MD) Lyme carditis Lyme disease Family History Family history: reviewed and not pertinent Social History Social History Household Members: Family Housing: House Do you presently have visiting nurse or other home services: No Alcohol intake: never Patient Tobacco Use Status: Never used Tobacco Smoked in Last 30 Days: No Patient Interested in Nicotine Replacement: No Patient Given Instructions on How to Stop Smoking: No Use of substances other than those prescribed or required for medical reasons: No Currently Displaying Signs/Symptoms of Drug Intoxication Withdrawal: No Advance Directives: No Advance Directives Information Provided: No Do you have thoughts of harming others: None Do you have a plan to hurt others: No Plan Nutrition Risks: No Nutritional Risk Poor oral hygiene: No service: No Meds Allergies Allergy/AdvReac Type Severity Reaction Status Date / Time No Known Allergies Allergy Verified 02/26/23 16:36 Active Medications: Current Medications Acetaminophen (Acetaminophen 325 Mg Tablet) 650 mg PO Q6H PRN PRN Reason: Pain, Mild (Pain Scale 1-3) Last Admin: 02/28/23 00:21 Dose: 650 mg Enoxaparin Sodium (Enoxaparin Sodium 40 Mg/0.4 Ml Syringe) 40 mg SUBCUT Q24H [facility] Last Admin: 02/28/23 20:37 Dose: 40 mg Ceftriaxone Sodium 2 gm/ (Sodium Chloride) 50 mls @ 100 mls/hr IV Q24H [facility] Last Infusion: 02/28/23 10:29 Dose: Infused Ibuprofen (Ibuprofen 600 Mg Tablet) 600 mg PO Q6H [facility] Last Admin: 02/28/23 20:38 Dose: 600 mg Melatonin (Melatonin 3 Mg Tablet) 6 mg PO BEDTIME PRN PRN Reason: Insomnia Last Admin: 02/28/23 20:39 Dose: 6 mg Ondansetron HCl (Ondansetron Hcl 4 Mg/2 Ml Vial) 4 mg IVPUSH Q8H PRN PRN Reason: Nausea and Vomiting Pharmacy Consult (Consult Rx Perform Med Rec) 1 each MISCELLANE ONCE PRN PRN Reason: Consult order Sodium Chloride (0.9 % Sodium Chloride Flush 3 Ml Syringe) 3 ml IVFLUSH QSHIFT [facility] Last Admin: 02/28/23 16:26 Dose: 3 ml Physical Exam Vital Signs: Vital Signs: Last Vital Signs Temp 97.7 F 02/28/23 19:26 Pulse 88 02/28/23 19:26 Resp 20 02/28/23 19:26 BP 150/76 H 02/28/23 19:26 Pulse Ox 98 02/28/23 19:26 O2 Del Method Room Air 02/28/23 19:26 BMI result Body Mass Index 35.4 Const: General: cooperative HEENT: Head: Yes normal to inspection Face and sinus: Yes normal facial exam Mouth: Normal oral and palatal mucosa present Teeth and gingiva: dentition normal Eyes: General: appearance normal, both eyes and all related structures Pupils: Equal, round and reactive pupils present Resp: Effort & Inspection: normal respiratory effort Cardio: Other: distant heart sounds Rate: regular rate Rhythm: regular rhythm GI: Palpation (GI): Soft to palpation and nontender : General: Yes no CVA tenderness Back/Spine/Pelvis: Back: no CVA tenderness Skin: Other: left inner upper arm oblong ecm lesion right upper chest oblong ecm lesion Neuro: General: moves all extremities Cranial nerves: Yes Equal, round and reactive pupils present Extrem: General: Yes normal to inspection Psych: Appearance: grossly normal Results Labs 02/28/23 06:14 02/28/23 06:14 Labs: Short CBC 02/28/23 Range/Units 06:14 WBC 7.5 (4.8-10.8) X10*3/uL Hgb 12.5 L (14.0-18.0) g/dl Hct 36.2 L (42.0-52.0) % Plt Count 183 (160-400) X10*3/uL BMP 02/28/23 06:14 Sodium 145 Potassium 4.8 D Chloride 112 H Carbon Dioxide 25 BUN 10 Creatinine 0.76 Calcium 9.3 Assessment and Plan (1) Chest pain: Status: Acute (2) Myocarditis: Status: Acute (3) Elevated LFTs: Status: Acute (4) Lyme disease: Status: Acute (5) Lyme carditis: Status: Acute He has chest pain and 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 Other tick borne diseases like [place] or babesiois possible. HIV ,mono less likely. Plan Await Lyme serology. Await echo. Patient will probably leave with IV Ceftriaxone for two weeks and three weeks total Doxycycline unless other data found. Time Spent With Patient Time: Total time managing care of this patient today ____ minutes.
[2023-03-01] VITALS: BP 137/70; PULSE 82; RESP 20; TEMP 36.1; O2SAT 98
[2023-03-01 04:00] VITALS: BP 138/70; PULSE 72; RESP 20; TEMP 36.1; O2SAT 99
[2023-03-01 08:00] VITALS: BP 110/67; PULSE 64; RESP 19; TEMP 36.2; O2SAT 99
--- NOTE | 2023-03-01 09:48 | HO.PM.IMPN ---
Subjective Subjective Date of Service: 03/01/23 Interval History: Doing well, no symptoms of any kind at this time, feel like himself Physical Exam Vital Signs: Vital Signs: Last Vital Signs Temp 97.2 F 03/01/23 08:00 Pulse 64 03/01/23 08:00 Resp 19 03/01/23 08:00 BP 110/67 03/01/23 08:00 Pulse Ox 99 03/01/23 08:00 O2 Del Method Room Air 03/01/23 08:00 BMI result Body Mass Index 35.4 Const: Other: General: AO X 3, no acute distress Resp: CTA bilateral CVS: S1,S2,RRR GI: +BS, NT, no distention Skin: No rash Neuro: motor grossly intact Psych: appropriate affect Objective Data Active Medications Acetaminophen (Acetaminophen 325 Mg Tablet) 650 mg PO Q6H PRN PRN Reason: Pain, Mild (Pain Scale 1-3) Last Admin: 02/28/23 00:21 Dose: 650 mg Documented By: DC Enoxaparin Sodium (Enoxaparin Sodium 40 Mg/0.4 Ml Syringe) 40 mg SUBCUT Q24H [facility] Last Admin: 02/28/23 20:37 Dose: 40 mg Documented By: RENETTA Ceftriaxone Sodium 2 gm/ (Sodium Chloride) 50 mls @ 100 mls/hr IV Q24H [facility] Last Infusion: 03/01/23 09:02 Dose: 0 mls/hr Documented By: GABINO Ibuprofen (Ibuprofen 600 Mg Tablet) 600 mg PO Q6H [facility] Last Admin: 03/01/23 03:30 Dose: 600 mg Documented By: MONSTER Melatonin (Melatonin 3 Mg Tablet) 6 mg PO BEDTIME PRN PRN Reason: Insomnia Last Admin: 02/28/23 20:39 Dose: 6 mg Documented By: RENETTA Ondansetron HCl (Ondansetron Hcl 4 Mg/2 Ml Vial) 4 mg IVPUSH Q8H PRN PRN Reason: Nausea and Vomiting Pharmacy Consult (Consult Rx Perform Med Rec) 1 each MISCELLANE ONCE PRN PRN Reason: Consult order Sodium Chloride (0.9 % Sodium Chloride Flush 3 Ml Syringe) 3 ml IVFLUSH QSHIFT [facility] Last Admin: 03/01/23 08:26 Dose: 3 ml Documented By: GABINO Labs 02/28/23 06:14 02/28/23 06:14 Assessment and Plan (1) Myocarditis: Status: Acute Plan d#3 17yo M with no chronic conditions, diagnosed with presumptive Lyme on 02/26/23 and started doxycycline but then developed chest pain/discomfort and found to have elevated troponin # multiple EM, likely early disseminated Lyme # myocarditis, likely Lyme - Cardiology consultation - Was on Doxy, now ceftriaxone since 02/28 - ID recommending Ceftriaxone iV x 2 week, PICC line 03/02 - tickborne molecular + serological tests pending - No sings of heart block on tele - TTE 02/28 - mid anterolateral segment is hypokinetic, EF 53%, no valve pathology - NSAIDs prn pain # VTE ppx: LMWH # dispo: eventually home In my clinical judgment, the patient requires continued inpatient hospitalization for the following reasons: IV ABX Time Spent With Patient Time: Total time managing care of this patient today ____ minutes. Quality Stroke Does the patient have a stroke diagnosis?: No VTE Prior VTE?: No VTE Risk Level:: Medical - moderate - high VTE Device Contraindication: Treatment Not Indicated VTE Drug Contraindication: N/A - Med Ordered
--- NOTE | 2023-03-01 10:55 | PM.PNCARD ---
Subjective Subjective Date of Service: 03/01/23 Interval history: He states he feels fine. No chest pains or any cardiac complaints. Review of Systems Review of Systems Yes all other systems are reviewed and are negative Constitutional: Reports as per HPI and Reports no additional constitutional complaints Eyes: Reports as per HPI and Denies no additional eye complaints Denies system reviewed and no additional complaints, except as documented and Reports as per HPI Cardiovascular: Reports as per HPI, Reports no additional cardiovascular complaints, Denies acrocyanosis, Denies cool extremities, Denies chest pain, Denies leg edema, Denies lightheadedness, Denies palpitations and Denies dyspnea Respiratory: Reports as per HPI, Denies no additional respiratory complaints and Denies dyspnea Gastrointestinal: Reports as per HPI and Denies no additional gastrointestinal complaints Genitourinary: Reports no additional male genitourinary complaints and Reports as per HPI Musculoskeletal: Reports no additional musculoskeletal complaints and Reports as per HPI Skin/Breast: Reports system reviewed and no additional complaints, except as docu Reports system reviewed and no additional complaints, except as documented and Reports as per HPI Psychiatric: Reports no additional psychiatric complaints and Reports as per HPI Endocrine: Reports no additional endocrine complaints, Reports as per HPI and Denies palpitations Hematologic/Lymphatic: Reports no additional hematologic/lymphatic complaints and Reports as per HPI Allergic/Immunologic: Reports no additional allergic/immunologic complaints and Reports as per HPI Physical Exam Vital Signs: Last Vital Signs Temp 97.2 F 03/01/23 08:00 Pulse 64 03/01/23 08:00 Resp 19 03/01/23 08:00 BP 110/67 03/01/23 08:00 Pulse Ox 99 03/01/23 08:00 O2 Del Method Room Air 03/01/23 08:00 BMI result Body Mass Index 35.4 Const General: comfortable and no acute distress Orientation/consciousness: patient oriented x3 HEENT Other: Unremarkable Head: Yes normal to inspection Neck Neck: Yes normal visual inspection Chest Chest palpation & inspection: normal inspection of the chest Resp Auscultation: clear to auscultation bilaterally Cardio Palpation: normal PMI Heart sounds: S1 normal heart sound present, S2 normal heart sound present, no gallops, no murmurs and no rubs GI Palpation (GI): Soft to palpation Back/Spine/Pelvis Other: unremarkable Skin General skin exam: no rashes or lesions noted Neuro General: patient oriented x3 Extrem General: Yes normal to inspection Psych Mental Status: mental status grossly normal Objective Labs and Meds 02/28/23 06:14 02/28/23 06:14 Progress Note: A&P Assessment and plan (1) Myocarditis: Status: Acute (2) Chest pain: Status: Acute Plan Troponins are 2014, 2217 and 1249 Telemetry does not show any Alvino arrhythmias or other concerning findings. Echocardiogram with low-normal LVEF; mid anterolateral hypokinesis. Overall looking diagnosis myopericarditis, possibly from Lyme but serologies are not back yet. Antibiotics per ID recommendations. At the current time, no specific need for cardiac interventions. Discussed with parents at the bedside. Eventually, will need repeat echocardiogram versus cardiac MRI as an outpatient. Time Spent With Patient Time: Total time managing care of this patient today 45 minutes. This includes time spent in review of chart, laboratory data, imaging studies, review of telemetry, counseling patient, family, discussion with hospitalist, RN, documentation, coordination of care. Progress Note: Quality Stroke Does the patient have a stroke diagnosis?: No Procedures Date of Service Date of Service: 03/01/23
[2023-03-01 12:00] VITALS: BP 126/72; PULSE 67; RESP 19; TEMP 36.6; O2SAT 99
[2023-03-01 16:00] VITALS: BP 140/74; PULSE 69; RESP 18; TEMP 36.2; O2SAT 99
[2023-03-01 19:30] VITALS: BP 143/88; PULSE 81; RESP 14; TEMP 36.9; O2SAT 99
[2023-03-02] VITALS: BP 143/67; PULSE 76; RESP 20; TEMP 36.2; O2SAT 99
[2023-03-02 03:22] VITALS: BP 124/53; PULSE 76; RESP 20; TEMP 36.1; O2SAT 99
[2023-03-02 08:00] VITALS: BP 127/76; PULSE 69; RESP 20; TEMP 36.4; O2SAT 98
[2023-03-02 08:38] LABS: Alanine Aminotransferase 163 U/L (0-40); Albumin Level 3.7 g/dL (3.5-5.0); Alkaline Phosphatase 87 U/L (39-117); Anion Gap 11 (12-20); Aspartate Amino Transferase 81 U/L (5-37); Bilirubin Total 0.6 mg/dL (0.0-1.0); Blood Urea Nitrogen 17 mg/dL (9-16); Calcium 9.4 mg/dL (8.4-10.2); Carbon Dioxide 28 mmol/L (22-29); Chloride 109 mmol/L (96-108); Creatinine Clr Calc Pharmacy 174.8; Estimated Glomerular Filt Rate > 60; Glucose Random 94 mg/dL (60-115); Potassium 4.2 mmol/L (3.3-5.1); Sodium 144 mmol/L (135-145); Total Protein 6.7 g/dL (6.5-8.0)
--- NOTE | 2023-03-02 10:23 | HO.MIDLINE ---
Midline Insertion MIDLINE INSERTION Diagnosis: [Lyme Carditis] Indication: [2 weeks antibx] Pertinent Labs: [Reviewed] Technique: Using sterile technique including cap and mask, glove and drape, the RIGHT arm was prepped and draped in the usual sterile fashion of full barrier technique with CHG. Using ultrasound guidance, RIGHT BASILIC vein access was obtained ON FIRST ATTEMPT BY MELISSA SIN RN. [id number] NON-PASV ST MIDLINE was positioned. The procedure was performed in RM. 272. Ultrasound was used to document vein patency and for needle entry. A formal ultrasound picture was recorded. Vascular Executive Steward has released the line for use and it is currently dressed with a StatLock, Tegaderm, and CHG disc. Verification has been performed for blood return and line patency. Arm Circumference: 34.5CM Equipment: POWERGLIDE ST MIDLINE Catheter Type: BARD'S [id number] NON-PASV MIDLINE Lot #: [[id number]]
--- NOTE | 2023-03-02 10:45 | MHC.CM.PN ---
Addendum entered by Radha Elder 03/02/23 14:42: [facility] HAS BEEN IN CONTACT WITH PTS MOTHER THEY HAVE DISCUSSED COST, PTS MOTHER STATES SHE WILL PAY AND THEN REQUEST REIMBURSEMENT FROM HER SECONDARY INSURANCE [facility] HAS CONFIRMED THEY ARE ALL SET FOR MED DELIVERY MOTHER WILL PROVIDE TRANSPORT Original Note: PT WILL BE DISCHARGING HOME WITH IV ABX REFERRAL PLACED TO [facility] LIAISON INDICATED SHE DOES BELIEVE THEY WILL BE ABLE TO PROVIDE A NURSE SHE WILL RUN COST AND REACH OUT TO PT/MOTHER CM MET WITH PT AND HIS MOTHER AT BEDSIDE THEY ARE AWARE OF THE ABOVE INFORMATION AND ARE WAITING FOR THE LIAISONS CALL.
--- NOTE | 2023-03-02 10:50 | PM.PNCARD ---
Subjective Subjective Date of Service: 03/02/23 Principal diagnosis: Myocarditis Interval history: Patient currently feeling better. Undergoing a PICC line for IV antibiotics. Patient has no significant cardiac arrhythmias. Overnight noted to have heart rate in the upper 40s. No prolonged AV block noted. Review of Systems Review of Systems Yes all other systems are reviewed and are negative Physical Exam Vital Signs: Last Vital Signs Temp 97.6 F 03/02/23 08:00 Pulse 69 03/02/23 08:00 Resp 20 03/02/23 08:00 BP 127/76 03/02/23 08:00 Pulse Ox 98 03/02/23 08:00 O2 Del Method Room Air 03/02/23 08:00 BMI result Body Mass Index 35.4 Const General: comfortable and no acute distress Orientation/consciousness: patient oriented x3 HEENT Other: Unremarkable Head: Yes normal to inspection Neck Neck: Yes normal visual inspection Chest Chest palpation & inspection: normal inspection of the chest Resp Auscultation: clear to auscultation bilaterally Cardio Palpation: normal PMI Heart sounds: S1 normal heart sound present, S2 normal heart sound present, no gallops, no murmurs and no rubs GI Palpation (GI): Soft to palpation Back/Spine/Pelvis Other: unremarkable Skin General skin exam: no rashes or lesions noted Neuro General: patient oriented x3 Extrem General: Yes normal to inspection Psych Mental Status: mental status grossly normal Objective Labs and Meds 03/02/23 08:02 03/02/23 08:02 Lab results: Laboratory Results - last 24 hr 02/28/23 03/02/23 03/02/23 08:08 08:02 08:02 WBC 8.2 RBC 4.41 L Hgb 13.2 L Hct 37.8 L MCV 85.7 MCH 29.9 MCHC 34.9 RDW 12.7 Plt Count 270 D MPV 9.4 Absolute Nucleated RBC 0.000 Nucleated RBC % (auto) 0.0 Sodium 144 Potassium 4.2 Chloride 109 H Carbon Dioxide 28 Anion Gap 11 L BUN 17 H Creatinine 0.75 Estim Creat Clear Calc 174.8 Estimated GFR > 60 Random Glucose 94 Calcium 9.4 Total Bilirubin 0.6 AST 81 H ALT 163 H Alkaline Phosphatase 87 Total Protein 6.7 Albumin 3.7 HIV 1&2 Ab/P24 Ag 4thGn Nonreactive Progress Note: A&P Assessment and plan (1) Myocarditis: Status: Acute Assessment and Plan: Patient presents with findings consistent with myocarditis most likely did related to Lyme disease. He is currently getting IV ceftriaxone. Serologies pending. Continue IV ceftriaxone. There is no obvious findings of cardiac arrhythmias at this point in time. Recommend outpatient cardiac MRI and follow up with Holter monitor as outpatient. Follow up in the clinic prior to he going back to his college. Should take precautions for tick bites in the future. Given his intermittent noted first-degree AV block on the monitor would avoid beta-clint therapy. Avoid sudden strenuous activity in the next 4-6 week till the myocardium heals. Will follow up as outpatient. Time Spent With Patient Time: Total time managing care of this patient today ____ minutes. Progress Note: Quality Stroke Does the patient have a stroke diagnosis?: No Procedures Date of Service Date of Service: 03/02/23
[2023-03-02 11:22] VITALS: BP 125/84; PULSE 75; RESP 20; TEMP 36.6; O2SAT 99
--- NOTE | 2023-03-02 11:25 | W.MHC.F2F ---
Service Date Service Date: 03/02/23 Encounter Date of encounter: 03/02/23 Reasons for Services Signs and symptoms assessed: IV ceftriaxone therapy Reason for detention: administration of IV, SQ, or IM injection Overseeing Care: Vicky Mendoza Homebound: Leaving the home is medically contraindicated at this time without the asist of a device and/or another person due th the listed conditions above and below. Reason homebound: immunosuppression / infection risk Homebound supporting statement: Patient needs IV ceftriaxone 2g daily via midline catheter 03/03-03/13 Certification: Based on the above findings, I certify that this patient is confined to the home and needs intermittent detention care, physical therapy and/or speech therapy, or continues to need occupational therapy. The patient is under my care, and I have initiated the establishment of the plan of care. The patient will be followed by a physician who will periodically review the plan of care. Time Spent With Patient Time: Total time managing care of this patient today ____ minutes.
--- NOTE | 2023-03-02 11:46 | PM.DS ---
DS: Providers Provider Date of Service: 03/02/23 Date of admission: 02/28/23 10:06 Date of discharge: 03/02/23 Primary care physician: Unknown Physician Consults: 02/27/23 22:13 Consult to Cardiology Routine Consulting Provider: [facility] Reason for consultation: elevated troponin 02/28/23 07:55 Consult to Infectious Diseases Routine Consulting Provider: [facility] Infectious Disease Reason for consultation: Lyme carditis DS: Diagnosis Discharge Diagnosis (1) Myocarditis: Status: Acute (2) 1st degree AV block: Status: Acute (3) Lyme carditis: Status: Acute (4) Lyme disease: Status: Acute DS: Summary Hospital Course Hospital Course: From admission H+P by hospitalist Ynes Ford MD, 02/28/23: This is a 17-year-old male with no pertinent past medical history and not on prescription medications presents to the emergency department for evaluation of chest discomfort.? 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 He presented to the ER yesterday with left arm rash which he noticed on the day on 02/26/2023.? Patient was initiated on doxycycline after consulting with ID and discharged by the ER provider.? Patient presents today again with midsternal chest discomfort, nonradiating, constant.? He states that it increases with deep inspiration.? And no history of similar complaints in the past. No fevers, chills, nausea, vomiting, palpitations, shortness of breath, abdominal pain, changes in urinary or bowel habits. In the emergency department, troponin was found to be elevated.? Cardiology was consulted who requested admission. 17yo M with no chronic conditions, diagnosed with presumptive Lyme on 02/26/23 and started doxycycline but then developed chest pain/discomfort and found to have elevated troponin. Admitted to [facility]. Echocardiogram showed calculated ejection fraction of 53% with hypokinetic mid-anterolateral segment. He had intermittent 1st degree AV block but no high-grade heart block. Cardiology and ID were consulted. He was started on IV ceftriaxone 2 grams daily on 02/28/23 and a midline cathter was placed on 03/02/23. Tickborne PCR and serologic panels are pending at the time of discharge. He will continue ceftriaxone 2 grams daily via PICC for total 14 days, with end date of 03/03/23. After that, he will take doxycycline 100 mg bid x 3 weeks. He needs follow-up with Dr Mendoza from ID as well as Dr Joseph from Cardiology. Cardiology will arrange outpatient Holter monitor and cardiac MRI. He was advised to avoid sudden, strenuous activity for 4-6 weeks. Time Spent with Patient Time attestation: Total time managing care of this patient today _45___ minutes. Discharge coordination time: Greater than 30 minutes Quality: Safe Use of Opioids Does Pt have an Active Cancer Diagnosis on the Problem List?: No Quality: Stroke Does the patient have a stroke diagnosis?: No Physical Exam Vital Signs: Vital Signs: Last Vital Signs Temp 97.8 F 03/02/23 11:22 Pulse 75 03/02/23 11:22 Resp 20 03/02/23 11:22 BP 125/84 03/02/23 11:22 Pulse Ox 99 03/02/23 11:22 O2 Del Method Room Air 03/02/23 11:22 BMI result Body Mass Index 35.4 Gen: in no acute distress HEENT: sclera anicteric, moist mucus membranes Neck: supple Lungs: clear to auscultation bilaterally Heart: regular rate and rhythm, no murmurs Abd: soft, non-tender, non-distended Ext: no edema Skin: warm/well-perfused Neuro: alert and oriented x3, no focal findings Psych: appropriate affect DS: Data Data Completed and Pending Completed studies during hospitalization [Text1]: Laboratory Results WBC 8.2 X10*3/uL (4.8-10.8) 03/02/23 08:02 RBC 4.41 X10*6/uL (4.60-5.80) L 03/02/23 08:02 Hgb 13.2 g/dl (14.0-18.0) L 03/02/23 08:02 Hct 37.8 % (42.0-52.0) L 03/02/23 08:02 MCV 85.7 fL (80.0-98.0) 03/02/23 08:02 MCH 29.9 pg (27.0-33.0) 03/02/23 08:02 MCHC 34.9 g/dl (31.0-36.0) 03/02/23 08:02 RDW 12.7 % (11.0-16.0) 03/02/23 08:02 Plt Count 270 X10*3/uL (160-400) D 03/02/23 08:02 MPV 9.4 fL (9.4-12.4) 03/02/23 08:02 Immature Gran % (Auto) 0.4 % (0.0-0.4) 02/28/23 06:14 Neut % (Auto) 39.6 % (45-73) L 02/28/23 06:14 Lymph % (Auto) 44.4 % (20-40) H 02/28/23 06:14 Hettinger % (Auto) 12.6 % (2-11) H 02/28/23 06:14 Eos % (Auto) 2.7 % (0-4) 02/28/23 06:14 Baso % (Auto) 0.3 % (0-2) 02/28/23 06:14 Lymph # (Auto) 3.3 X10*3/uL (1.2-4.9) 02/28/23 06:14 Hettinger # (Auto) 0.9 X10*3/uL (0.1-1.2) 02/28/23 06:14 Eos # (Auto) 0.2 X10*3/uL (0.0-0.4) 02/28/23 06:14 Baso # (Auto) 0.0 X10*3/uL (0.0-0.2) 02/28/23 06:14 Abs Immat Gran (auto) 0.03 X10*3/uL (0.00-0.03) 02/28/23 06:14 Absolute Neuts (auto) 3.0 x10*3/uL (2.0-8.3) 02/28/23 06:14 Absolute Nucleated RBC 0.000 X10*3/uL (0.0-0.012) 03/02/23 08:02 Nucleated RBC % (auto) 0.0 /100WBC (0.0-0.2) 03/02/23 08:02 Sodium 144 mmol/L (135-145) 03/02/23 08:02 Potassium 4.2 mmol/L (3.3-5.1) 03/02/23 08:02 Chloride 109 mmol/L (96-108) H 03/02/23 08:02 Carbon Dioxide 28 mmol/L (22-29) 03/02/23 08:02 Anion Gap 11 (12-20) L 03/02/23 08:02 BUN 17 mg/dL (9-16) H 03/02/23 08:02 Creatinine 0.75 mg/dL (0.5-1.4) 03/02/23 08:02 Estim Creat Clear Calc 174.8 03/02/23 08:02 Estimated GFR > 60 03/02/23 08:02 Random Glucose 94 mg/dL (60-115) 03/02/23 08:02 Calcium 9.4 mg/dL (8.4-10.2) 03/02/23 08:02 Magnesium 1.9 mg/dL (1.6-2.6) 02/27/23 20:22 Total Bilirubin 0.6 mg/dL (0.0-1.0) 03/02/23 08:02 AST 81 U/L (5-37) H 03/02/23 08:02 ALT 163 U/L (0-40) H 03/02/23 08:02 Alkaline Phosphatase 87 U/L (39-117) 03/02/23 08:02 Troponin I High Sens 1249.6 ng/L (<3.5-35.0) H* 02/28/23 06:14 Total Protein 6.7 g/dL (6.5-8.0) 03/02/23 08:02 Albumin 3.7 g/dL (3.5-5.0) 03/02/23 08:02 HIV 1&2 Ab/P24 Ag 4thGn Nonreactive (Nonreactive) 02/28/23 08:08 Impressions Chest X-Ray 02/27/23 20:34 IMPRESSION: Unremarkable examination. 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 Referrals: [facility] [Other] - 1 Week Ian Bhardwaj FNP-BC [Nurse Practitioner] - 1 Week Vicky Mendoza MD [Physician] - 1 Week Zion Joseph MD [Physician] - 1 Week Physician,Unknown J [Primary Care Provider] - 1 Week Discharge Medications: New ceftriaxone 2 gram Recon Soln 2 g IV Q24H Qty: 11 0RF Continued ibuprofen 600 mg tablet 600 mg PO Q6H PRN (Reason: fever or pain) Qty: 20 0RF doxycycline hyclate 100 mg tablet 100 mg PO BID Qty: 42 0RF Discharge Orders: Discharge Order (Routine); Ordered 03/02/23 Ordered By: Naty Fabian Diet: Advance to usual diet Activity on Discharge: As tolerated Stand Alone Forms: Patient Portal Discharge page Care Plan Goals: recovery from Lyme myocarditis Health Concerns: Lyme disease with myocarditis, intermittent 1st-degree heart block Plan of Treatment: IV ceftriaxone 2 grams daily via midline catheter 03/03-03/13 [got in the hospital 02/28-03/02], then discontinue midline catheter and take doxycycline 100 mg twice daily for 3 weeks follow up with Infectious Disease specialist Carolina Mendoza in 1 week outpatient cardiac MRI and follow up with Holter monitor as outpatient. avoid sudden strenuous activity in the next 4-6 weeks follow up with [facility] Zion Joseph in 2 weeks; they will arrange the cardiac MRI and Holter monitor check yourself daily or better, twice daily, for ticks use appropriate repellents: DEET or picaridin consider treating clothes with permethrin keep doxycycline on hand. if a tick has been attached for an estimated 36+ hours [based on engorgement], take doxycycline 200 mg once within 72 hours of tick removal to prevent Lyme disease Please follow up with your primary care doctor within 1 week. Return to the hospital if you experience recurrent or worsening symptoms. Assessment: See Discharge Summary. Discharge Date/Time: 03/02/23 15:48
[2023-03-02 23:14] LABS: A. Phagocytphilium DNA,RT-PCR NOT DETECTED (NOT DETECTED); Babesia Microti DNA, RT-PCR NOT DETECTED (NOT DETECTED); Borrelia Miyamotoi,DNA RT-PCR NOT DETECTED (NOT DETECTED); E.Chaffeensis DNA RT-PCR NOT DETECTED (NOT DETECTED); Lyme(Borrelia ssp)DNA RT-PCR NOT DETECTED (NOT DETECTED)
[2023-03-03 06:08] LABS: Lyme Blot 1.71 index
[2023-03-06 13:05] LABS: Lyme Abs Screen POSITIVE
[2023-03-06 13:06] LABS: 18 KD (IgG) Band NON-REACTIVE; 23 KD (IgG) Band NON-REACTIVE; 23 KD (IgM) Band REACTIVE; 28 KD (IgG) Band NON-REACTIVE; 30 KD (IgG) Band NON-REACTIVE; 39 KD (IgM) Band NON-REACTIVE; 39KD (IgG) Band REACTIVE; 41 KD (IgM) Band REACTIVE; 41KD (IgG) Band REACTIVE; 45 KD (IgG) Band NON-REACTIVE; 58 KD (IgG) Band NON-REACTIVE; 66 KD (IgG) Band NON-REACTIVE; 93 KD (IgG) Band NON-REACTIVE; Lyme IgG Blot Interp NEGATIVE (NEGATIVE); Lyme IgM Blot Interp POSITIVE (NEGATIVE)
== END 2023-03-02 15:48 | disposition home health service (06) | DRG 724 ==
LOC: HO.ED 22:21 → HO.EDOVER 22:24 → HO.IMC 22:31
PROVIDERS: Admitting Provider Student in an Organized Health Care Education/Training Program; Emergency Provider Emergency Medicine; PCP Nurse Practitioner Family; Visit Provider Family Medicine
DX: A69.29 Other conditions associated with Lyme disease (principal); I44.0 Atrioventricular block, first degree
CPT/HCPCS: 36410; 36415; 71045; 80048; 80053; 83735; 84484; 85025; 85027; 86617; 86618; 87389; 87798; 87801; 93005; 93306; 99285; J0696; J1200; J1642; J1650; Q9957

== ENCOUNTER → 2023-02-27 22:13 | Outpatient (BNV) | payer OTHER, SELFPAY | PROVIDERS: Admitting Provider Student in an Organized Health Care Education/Training Program; Emergency Provider Emergency Medicine; Visit Provider Student in an Organized Health Care Education/Training Program | DX: I51.4 Myocarditis, unspecified (principal); I44.0 Atrioventricular block, first degree; A69.29 Other conditions associated with Lyme disease; A69.20 Lyme disease, unspecified | CPT/HCPCS: 99222; 99232; 99239 ==

== ENCOUNTER 2023-02-28 10:06 | Outpatient (BNV) | payer OTHER, SELFPAY | END 2023-03-02 15:01 | PROVIDERS: Admitting Provider Student in an Organized Health Care Education/Training Program; Emergency Provider Emergency Medicine; Visit Provider Internal Medicine Cardiovascular Disease | DX: R07.9 Chest pain, unspecified (principal) | CPT/HCPCS: 93010 ==

== ENCOUNTER → 2023-02-28 10:06 | Outpatient (BNV) | payer OTHER, SELFPAY | PROVIDERS: Admitting Provider Student in an Organized Health Care Education/Training Program; Emergency Provider Emergency Medicine; Visit Provider Internal Medicine | DX: I51.4 Myocarditis, unspecified (principal); R07.9 Chest pain, unspecified; R00.0 Tachycardia, unspecified | CPT/HCPCS: 93010; 93306; 99222; 99231; 99233 ==

== ENCOUNTER 2023-03-06 13:52 | Outpatient (AMB) | payer OTHER, SELFPAY ==
--- NOTE | 2023-03-06 13:57 | A.OFFVIS_ITS ---
Intake Vital Signs 03/06/23 14:05 Height 5 ft 6 in Weight 210 lb BMI 33.9 BP 136/70 Pulse 90 Pulse Oximetry (%) 99 Intake Visit Reasons: hospital f/u lyme/doxycicline Allergies No Known Allergies Allergy (Verified 03/06/23 14:06) HPI hospital f/u lyme/doxycicline HPI Details I had seen him in hospital for presumed Lyme carditis. He is feeling well now. He is also seeing Cardiology. He has no Lyme rash. [facility] Medical History Lyme carditis Lyme disease Social History Household Members: Family Housing: House Do you presently have visiting nurse or other home services: No Alcohol intake: never Patient Tobacco Use Status: Never used Tobacco service: No Review of Systems Const All systems reviewed & are unremarkable except as noted in HPI and below Physical Exam Vital Signs: Last Vital Signs Pulse 90 03/06/23 14:05 BP 136/70 03/06/23 14:05 Pulse Ox 99 03/06/23 14:05 BMI result Body Mass Index 33.9 Const General: cooperative Orientation/consciousness: patient oriented x3 HEENT Head: Yes normal to inspection Mouth: Normal oral and palatal mucosa present Eyes General: appearance normal, both eyes and all related structures Pupils: Equal, round and reactive pupils present Resp Effort & Inspection: normal respiratory effort Cardio Rate: regular rate Rhythm: regular rhythm GI Palpation (GI): Soft to palpation and nontender General: Yes no CVA tenderness Back/Spine/Pelvis Back: no CVA tenderness Skin General skin exam: no rashes or lesions noted Neuro General: patient oriented x3 Cranial nerves: Yes CN's II-XII intact bilaterally and Yes Equal, round and reactive pupils present Extrem General: Yes normal to inspection Psych Appearance: grossly normal Assessment & Plan Assessment & Plan (1) 1st degree AV block: Code(s): I44.0 - Atrioventricular block, first degree (2) Lyme carditis: Comment: He is feeling improved. He has no other infections seen at this time. Code(s): A69.29 - Other conditions associated with Lyme disease Plan: Finish treatment Ceftriaxone and Doxycycline as scheduled. See again if needed. (3) Lyme disease: Code(s): A69.20 - Lyme disease, unspecified Orders: Orders IR cvc remove any age 0703/06/23 A69.20 - Lyme disease, unspecified Coding Level of Care Code Est Pt Level 3 (28614) Diagnoses 1st degree AV block I44.0 Lyme carditis A69.29 Lyme disease A69.20
[2023-03-06 14:05] VITALS: BP 136/70; PULSE 90; O2SAT 99; BMI 33.9
== END 2023-03-06 14:25 | disposition home or self-care (01) ==
LOC: HO.HID 13:52
PROVIDERS: Visit Provider Internal Medicine
DX: I44.0 Atrioventricular block, first degree (principal); A69.29 Other conditions associated with Lyme disease; A69.20 Lyme disease, unspecified
CPT/HCPCS: 99213

== ENCOUNTER → 2023-03-06 13:52 | Outpatient (BNVA) | payer OTHER, SELFPAY | PROVIDERS: Visit Provider Internal Medicine ==

== ENCOUNTER → 2023-03-26 11:02 | Outpatient (REF) | payer OTHER, SELFPAY ==
--- NOTE | 2023-03-26 11:05 | CA_ITS ---
Transthoracic Echocardiogram Patient (Last, First, Middle): Patel Martinez, Gender: Male Date of : 2005 Age: 17 Procedure Date: 03/26/2023 Procedure Type: Transthoracic Echocardiogram Location: OP Height: 167.64 cm Weight: 86.18 kg BSA: 1.96 m2 Heart Rate: bpm BP: 130 / 75 mmHg Medical Technologist Chief: VISHAL Referring MD: Zion Joseph MD Symptoms: A69.29 - Other conditions associated with Lyme disease Study Quality: Adequate with contrast ECG Rhythm: Sinus Conclusions: - The left ventricular systolic function is normal. The calculated ejection fraction is 56% by biplane method. - No obvious valvular pathology seen on this study. Findings Procedure Information Contrast agent, definity, is being given per protocol without apparent complications. Left Ventricle Normal left ventricular cavity size. There is normal left ventricular wall thickness. The left ventricular systolic function is normal. The calculated ejection fraction is 56% by biplane method. There is no evidence of regional wall motion abnormalities. Diastolic function is normal for age. Right Ventricle Normal right ventricular cavity size and systolic function. Atria Both atria are normal in size. Aortic Valve There is a normal trileaflet aortic valve. There is no aortic valve stenosis. There is no aortic valve regurgitation. Mitral Valve The mitral valve appears normal. There is no mitral valve regurgitation. There is no mitral valve stenosis. Pulmonic Valve There is trace pulmonic valve regurgitation. Tricuspid Valve Normal tricuspid valve structure. There is trace tricuspid valve regurgitation. There is no evidence of pulmonary hypertension. Great Vessels The asc aorta and aortic arch are normal in size. Venous The inferior vena cava is normal in size and collapses greater than 50% with inspiration. Pericardium/Pleural There is no evidence of pericardial effusion. Prior Study Comparison Changes noted compared to prior study dated: 02/28/2023. Improved wall motion. Recommendations, Care & Conclusions No obvious valvular pathology seen on this study. Measurements 2D Linear Measurements IVSd: 0.72 0.6-0.9/0.6-1.0 cm LVIDd: 5.29 3.9-5.3/4.2-5.9 cm LVIDd Index: 2.70 2.4-3.2/2.2-3.1 cm/m2 LVIDs: 3.22 2.0-3.6 cm LVPWd: 0.76 0.7-1.1 cm LA Diam: 3.30 2.7-3.8/3.0-4.0 cm LAIDs Index: 1.68 1.5-2.3 cm/m2 LV Mass: 168.60 67-162/88-224 g LV Mass Index: 86.02 43-95/49-115 g/m2 LVOT Diam: 2.20 3.0+(-)1.3 cm 2D Systolic Function EF 4C: 58.10 >55% EF 2C: 55.80 >55% EF BiP: 56.30 >55% Mitral Valve MV Pk E: 0.93 MV PK A: 0.72 MV Decel Time: 203.00 E/A: 1.30 E'Lateral: 18.50 E'Medial: 13.70 E/E' Med: 6.80 E/E' Lat: 5.00 PHT: 59.00 MVA PHT: 3.73 Decel Mcintosh: 4.59 Aortic Valve AoV Pk Herb: 1.44 AoV Mn Herb: 1.02 AoV VTI: 0.25 AoV Pk Grad: 8.00 Aov Mn Grad: 5.00 TIO Cont.VTI: 2.99 LVOT LVOT Pk Herb: 1.19 LVOT Mn Herb: 0.73 LVOT VTI: 0.20 LVOT Pk Grad: 6.00 LVOT Mn Grad: 3.00 LVOT Diam: 2.20 LVOT Area: 3.80 Diastolic Function MV Pk E: 0.93 MV Pk A: 0.72 E/A: 1.30 E'Medial: 13.70 E/E' Med: 6.80 E' Laterial: 18.50 E/E' Lat: 5.00 Right Ventricle TAPSE (mm): 19.40 TVS' Herb: 12.70 Tricuspid Valve RA Press: 3.00 Great Vessels Aorta Sinus of Valsalva: 2.88 2.0-3.[address] Ridge: 2.23 1.7-3.4 cm Ao Asc: 2.40 2.1-3.4 cm Ao Arch: 2.20 Updated in Other Vendor System with Status of Final Zion Joseph MD electronically signed on 03/28/2023 11:48:30 AM with status of Final
--- NOTE | 2023-03-26 11:05 | HM_ITS ---
* Total monitoring time 6 days. * Underlying rhythm is sinus. Average ventricular rate 91/Min. Range 42- 168/Min. * About 32% of the time, rate > 100/Min. * Rare supraventricular ectopy * Mobitz 1 second-degree block during sleep hours. * No symptoms in patient diary. For MTDD
== END ==
LOC: HO.CARD 11:02
PROVIDERS: Visit Provider Internal Medicine
DX: A69.29 Other conditions associated with Lyme disease (principal); R00.2 Palpitations
CPT/HCPCS: 93242; 93306; Q9957

== ENCOUNTER → 2023-03-26 11:05 | Outpatient (BNV) | payer OTHER, SELFPAY | PROVIDERS: Visit Provider Internal Medicine | DX: I44.1 Atrioventricular block, second degree (principal) | CPT/HCPCS: 93244; 93306 ==

== ENCOUNTER 2023-04-02 12:21 | Outpatient (REF) | payer OTHER, SELFPAY ==
[2023-04-02 16:03] LABS: Alanine Aminotransferase 30 U/L (0-40); Albumin Level 4.4 g/dL (3.5-5.0); Alkaline Phosphatase 80 U/L (39-117); Anion Gap 12 (12-20); Aspartate Amino Transferase 26 U/L (5-37); Bilirubin Total 0.5 mg/dL (0.0-1.0); Blood Urea Nitrogen 18 mg/dL (9-16); Calcium 9.6 mg/dL (8.4-10.2); Carbon Dioxide 30 mmol/L (22-29); Chloride 107 mmol/L (96-108); Estimated Glomerular Filt Rate > 60; Glucose Random 75 mg/dL (60-115); Potassium 3.8 mmol/L (3.3-5.1); Sodium 145 mmol/L (135-145); Total Protein 7.4 g/dL (6.5-8.0)
== END 2023-04-02 12:22 | disposition home or self-care (01) ==
LOC: HO.LAB 12:21
PROVIDERS: Visit Provider Nurse Practitioner
DX: I44.0 Atrioventricular block, first degree (principal); A69.29 Other conditions associated with Lyme disease; R79.89 Other specified abnormal findings of blood chemistry
CPT/HCPCS: 36415; 80053; 93005

== ENCOUNTER 2023-04-02 12:21 | Outpatient (AMB) | payer OTHER, SELFPAY ==
[2023-04-02 12:38] VITALS: BP 118/74; PULSE 67; BMI 34.2
--- NOTE | 2023-04-02 12:38 | A.OFFVIS_ITS ---
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 He is here with his mother today. He denies any palpitations, rash, pain, SOB, fatigue, syncope, or lightheadedness. Tick bite has completely resolved. He returned his holter monitor today and is getting his Cardiac MRI perform on 05/11. He has completed his antibiotic course. 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 He is going [employer] at the end of this month. He and his mother report no concerns at this time. [facility] Medical History Lyme carditis Lyme disease Social History Household Members: Family Housing: House Do you presently have visiting nurse or other home services: No Alcohol intake: never Patient Tobacco Use Status: Never used Tobacco service: No Review of Systems Const Denies chills, Denies fatigue, Denies fever(s), Denies frequent falls, Denies weakness, Denies weight gain and Denies weight loss ENT Denies dizziness Card Denies chest pain, Denies leg edema, Denies lightheadedness, Denies palpitations, Denies dyspnea, Denies dyspnea on exertion, Denies orthopnea and Denies other (loss of consciousness) Resp Denies cough, Denies dyspnea and Denies dyspnea on exertion GI Denies hematochezia and Denies change in stool character Musc Denies abnormal gait, Denies muscle weakness, Denies numbness, Denies radiating pain into limb and Denies tingling Neuro Denies abnormal gait, Denies dizziness, Denies frequent falls, Denies numbness, Denies tingling and Denies weakness Endo Denies fatigue and Denies palpitations Physical Exam Vital Signs: Last Vital Signs Pulse 67 04/02/23 12:38 BP 118/74 04/02/23 12:38 BMI result Body Mass Index 34.2 Const General: healthy appearing and no acute distress Orientation/consciousness: patient oriented x3 HEENT Head: Yes normal to inspection Eyes General: appearance normal, both eyes and all related structures Neck Neck: Yes normal visual inspection Chest Chest palpation & inspection: normal inspection of the chest Resp Effort & Inspection: normal respiratory effort Auscultation: clear to auscultation bilaterally Cardio Jugular venous distension: no JVD Palpation: normal PMI Rate: regular rate Rhythm: regular rhythm Heart sounds: S1 normal heart sound present, S2 normal heart sound present, no click, no gallops, no murmurs and no rubs GI Inspection: Yes normal to inspection Palpation (GI): Soft to palpation Skin General skin exam: no rashes or lesions noted Neuro General: patient oriented x3 Extrem General: Yes normal to inspection Psych Appearance: grossly normal Office Procedures EKG Details: Normal sinus rhythm. Rate 86 pm. MO 166ms. QTc 418ms. MO 166ms. No significant changes from last EKG. [id number], Complete Assessment & Plan Assessment & Plan (1) Elevated LFTs: Code(s): R79.89 - Other specified abnormal findings of blood chemistry (2) Lyme carditis: Comment: He is feeling improved. He has no other infections seen at this time. Code(s): A69.29 - Other conditions associated with Lyme disease (3) 1st degree AV block: Code(s): I44.0 - Atrioventricular block, first degree Plan Patients EKG today sinus rhythm with no significant changes today. Echo on 03/26/23 ejection fraction improved to 56%. Plan for lab work today to check moe er function. He reports he feels back to his normal. Educated to report any palpations, chest pains, syncope, or any other concerning symptoms and seek emergency care if necessary. Monitor for any signs of tick bite and use precautions to avoid any future bites. He will follow-up with Dr. Joseph during his winter break and sooner if needed. Will plan to call with results of holter monitor, cardiac MRI, and lab results. Orders: Orders Comprehensive Met. Panel Today A69.29 - Other conditions associated with Lyme disease, R79.89 - Other specified abnormal findings of blood chemistry Coding Level of Care Code Est Pt Level 3 (43546) Diagnoses Elevated LFTs R79.89 Lyme carditis A69.29 1st degree AV block I44.0 CPT Codes EKG - CPT: 05516-[id number], Complete ([id number])
== END 2023-04-02 13:11 | disposition home or self-care (01) ==
PROVIDERS: Visit Provider Nurse Practitioner
DX: R79.89 Other specified abnormal findings of blood chemistry (principal); A69.29 Other conditions associated with Lyme disease; I44.0 Atrioventricular block, first degree
CPT/HCPCS: 93010; 99213

== ENCOUNTER 2023-08-25 09:57 | Outpatient (AMB) | payer OTHER, SELFPAY ==
[2023-08-25 10:15] VITALS: BP 116/62; BMI 33.2
--- NOTE | 2023-08-25 10:15 | A.OFFVIS_ITS ---
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 Earlier this year, he was hospitalized for Lyme infection and in that setting, had suspected myopericarditis. Troponin levels were over 1999. Echocardiogram at shown mid anterolateral hypokinesis. He has taken antibiotics for the same and overall feels fine. No specific concerns or symptoms from cardiac. Normal activity level. 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 Patient Tobacco Use Status: Never used Tobacco service: No Review of Systems Const Denies weakness ENT Denies dizziness Card Denies chest pain, Denies chest pain with activity, Denies syncope, Denies rapid heart rate, Denies pedal edema, Denies edema, Denies leg edema, Denies lightheadedness, Denies palpitations, Denies dyspnea, Denies dyspnea on exertion and Denies orthopnea Resp Denies cough, Denies dyspnea and Denies dyspnea on exertion GI Denies hematochezia and Denies change in stool character Musc Denies abnormal gait, Denies muscle cramps, Denies muscle weakness, Denies numbness, Denies radiating pain into limb and Denies tingling Neuro Denies abnormal gait, Denies dizziness, Denies syncope, Denies numbness, Denies tingling and Denies weakness Endo Denies palpitations Physical Exam Vital Signs: Last Vital Signs BP 116/62 08/25/23 10:15 BMI result Body Mass Index 33.2 Const General: comfortable and no acute distress Orientation/consciousness: patient oriented x3 HEENT Other: Unremarkable Head: Yes normal to inspection Neck Neck: Yes normal visual inspection Chest Chest palpation & inspection: normal inspection of the chest Resp Auscultation: clear to auscultation bilaterally Cardio Palpation: normal PMI Heart sounds: S1 normal heart sound present, S2 normal heart sound present, no gallops, no murmurs and no rubs GI Palpation (GI): Soft to palpation Back/Spine/Pelvis Other: unremarkable Skin General skin exam: no rashes or lesions noted Neuro General: patient oriented x3 Extrem General: Yes normal to inspection Psych Mental Status: mental status grossly normal Assessment & Plan Assessment & Plan (1) Lyme carditis: Code(s): A69.29 - Other conditions associated with Lyme disease Plan Cardiac studies reviewed. Initial echocardiogram with low normal LVEF at 53%. Mid anterolateral hypokinesis. In the repeat study, improved wall motion. Cardiac MRI shows normal LVEF at 56%. Normal RV EF at 55%. No evidence of any myocarditis or other significant findings. EKG does not show any significant conduction system disease. In the Holter, underlying rhythm is sinus with some sinus tachycardia and Mobitz type 1 block during sleep hours. These findings could be related to obesity. Overall, it seems that he likely had Lyme carditis but recovered completely. There is no evidence of residual myocardial dysfunction or conduction system disease. No further testing at this time. If any concerns, they will contact us. With regard to the Holter findings, likely all related to weight. Weight loss recommended. Discussed with mother who came for appointment. Total time spent including review of data, counseling, documentation, coordination of care-31 minutes. Coding Level of Care Code Est Pt Level 4 (66738) Diagnoses Lyme carditis A69.29
== END 2023-08-25 10:49 | disposition home or self-care (01) ==
PROVIDERS: Visit Provider Internal Medicine
DX: A69.29 Other conditions associated with Lyme disease (principal)
CPT/HCPCS: 99214

== ENCOUNTER → 2023-08-25 09:57 | Outpatient (BNVA) | payer OTHER, SELFPAY | PROVIDERS: Visit Provider Internal Medicine ==

== ENCOUNTER 2024-01-19 15:06 | Outpatient (AMB) | payer OTHER, SELFPAY ==
--- NOTE | 2024-01-19 15:54 | AM.OFFWIN_ITS ---
Intake Vital Signs 01/19/24 15:56 Height 5 ft 6 in Weight 190 lb BMI 30.7 BP 118/70 Blood Pressure Location Rt brachial Position Sitting Pulse 72 Pulse Source Pulse Oximeter Temp 99.0 F Temp Source Oral Pulse Oximetry (%) 98 Intake Visit Reasons: EP Dizzy, head pressure, burning chest Intake Note: pt is here for c/o dizzines, head pressure around temples, chesting congestion burning Patient Tobacco Use Status: Never used Tobacco Allergies No Known Allergies Allergy (Verified 01/19/24 16:08) Medication List - Last Reconciled 01/19/24 by Reji Marshall MD No Known Home Meds Do you need a note to return to daycare/school/sports/work: Yes HPI EP Dizzy, head pressure, burning chest HPI Details Patient presents for a sick visit. Reporting symptoms of sinus congestion, sore throat and difficulty swallowing. Low-grade fever. No family member is sick. No recent travel. Patient reports symptoms of malaise and fatigue. 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 Patient Tobacco Use Status: Never used Tobacco service: No Physical Exam Vital Signs: Last Vital Signs Temp 99.0 F 01/19/24 15:56 Pulse 72 01/19/24 15:56 BP 118/70 01/19/24 15:56 Pulse Ox 98 01/19/24 15:56 BMI result Body Mass Index 30.7 Const General: cooperative and healthy appearing Nutritional Appearance: well nourished Orientation/consciousness: patient oriented x3 Limitations: no limitations HEENT Head: Yes normal to inspection Eyes General: appearance normal, both eyes and all related structures Neck Neck: Yes normal visual inspection Chest Chest palpation & inspection: normal palpation of entire chest wall Resp Effort & Inspection: normal respiratory effort Neuro General: patient oriented x3 Assessment & Plan Assessment & Plan (1) Upper respiratory tract infection: Code(s): J06.9 - Acute upper respiratory infection, unspecified Plan Antibiotics ordered. Increase fluid intake. Tylenol for aches and pains. If symptoms worsen, follow-up here for a recheck. Medications: New azithromycin take 500 mg today (day 1), then 250 mg for 4 days (days 2-5) PO 6 tabs 0RF Coding Level of Care Code Est Pt Level 3 (35616) Diagnoses Upper respiratory tract infection J06.9
[2024-01-19 15:56] VITALS: BP 118/70; PULSE 72; TEMP 37.2; O2SAT 98; BMI 30.7
== END 2024-01-19 16:51 | disposition home or self-care (01) ==
PROVIDERS: Visit Provider Internal Medicine
DX: J06.9 Acute upper respiratory infection, unspecified (principal)
CPT/HCPCS: 99213